=== PATIENT | female | born 1975 | race Caucasian/White ===

== ENCOUNTER 2017-06-01 17:32 | Emergency (ER) | payer OTHER ==
[~2017-06-01] VITALS: Wt 63.5 kg
[~2017-06-01 17:32] MED LIST: CIPROFLOXACIN500 MG PO; COPAXONE40 MG/ML SC; CYMBALTA20 MG PO; Copaxone 20M20 MG/ML IM; DARVOCET N 1001 TAB PO; DILANTIN; DILANTIN100 MG; ELAVIL10 MG PO; KEPPRA100 MG/M1 PO; LIBRIUM10 MG PO; MOTRIN800 MG PO; MULTI VITAMINS1 TAB PO; NEURONTIN300 MG PO; NKHM; OMEPRAZOLE20 MG PO; PERCOCET 325 MG1 TA4 PO; PERCOCET 325 MG1 TA5 PO; PROVIGIL200 MG PO; REGLAN10 MG PO; SYNTHROID0.05 MG PO; TRAMADOL HCL50 MG; TRAMADOL HCL50 MG PO; VALIUM10 MG; VISTARIL PO; XANAX1 MG; ZANAFLEX4 MG PO; ZOLOFT100 MG PO
[2017-06-01 17:45] VITALS: BP 138/77
[2017-06-01] MEDS ORDERED: Motrin,Rufen800 MG PO ×2 (19:36→19:44)
== END 2017-06-01 20:16 | disposition home or self-care (01) ==
LOC: ED 17:32
DX: S81.811A Laceration without foreign body, right lower leg, initial encounter (principal); F17.200 Nicotine dependence, unspecified, uncomplicated; Z79.899 Other long term (current) drug therapy; W25.XXXA Contact with sharp glass, initial encounter; Y93.89 Activity, other specified; Y92.89 Other specified places as the place of occurrence of the external cause; Y99.8 Other external cause status

== ENCOUNTER 2017-09-04 14:43 | Emergency (ER) | payer OTHER ==
[~2017-09-04] VITALS: Ht 162.5 cm; Wt 63.5 kg
[~2017-09-04 14:43] MED LIST changes: +Motrin,Rufen800 MG PO
[2017-09-04 14:45] VITALS: BP 121/72
[2017-09-04] MEDS ORDERED: NAPROSYN500 MG PO (15:19)
[2017-09-04] MEDS ORDERED: DIFLUCAN150 MG PO (15:24)
== END 2017-09-04 15:21 | disposition home or self-care (01) ==
LOC: ED 14:43
DX: M79.631 Pain in right forearm (principal); F17.200 Nicotine dependence, unspecified, uncomplicated; Z79.899 Other long term (current) drug therapy

== ENCOUNTER → 2017-11-11 | Outpatient (CLI) | payer OTHER ==
[~2017-11-11] MED LIST changes: +DIFLUCAN150 MG PO; +NAPROSYN500 MG PO
[2017-11-11 13:13] LABS: BUN 10 mg/dl (7-24); CREATININE 0.91 mg/dL (0.55-1.02)
== END | disposition home or self-care (01) ==
LOC: LAB 12:38 → MRI 13:00
PROVIDERS: Physician Assistant Medical
DX: M53.82 Other specified dorsopathies, cervical region (principal)

== ENCOUNTER 2017-12-09 14:01 | Inpatient (IN) | payer OTHER ==
[~2017-12-09] VITALS: Ht 162.6 cm; Wt 64.4 kg
[~2017-12-09 14:01] MED LIST changes: -KEPPRA100 MG/M1 PO; +KEPPRA750 MG PO
[2017-12-09 15:30] VITALS: BP 119/81
[2017-12-09 15:50] LABS: BASO # 0.1 10*3/uL (0.0-0.1); BASO % 0.6 % (0.0-1.0); EOS # 0.1 10*3/uL (0.0-0.4); HEMATOCRIT 39.3 % (37.0-47.0); HEMOGLOBIN 12.6 g/dl (12.0-16.0); LYMPH # 2.1 10*3/uL (1.3-4.4); LYMPH % 19.4 % (27.0-41.0); MEAN CELL VOLUME 86.9 fl (81.0-99.0); MEAN CORPUSCULAR HGB 27.9 pg (27.0-31.0); MEAN CORPUSCULAR HGB CONC 32.1 g/dl (33.0-37.0); MEAN PLATELET VOLUME 9.8 fl (9.6-12.3); MONO # 0.4 10*3/uL (0.1-1.0); MONO % 3.9 % (3.0-9.0); NEUT % 74.7 % (47.0-73.0); PLATELET COUNT AUTOMATED 309 10*3/uL (130-400); RED BLOOD COUNT 4.52 10*6/uL (4.10-5.10); RED CELL DISTRI WIDTH 14.2 % (0-14.5); WHITE BLOOD COUNT 10.6 10*3/uL (4.8-10.8)
[2017-12-09 16:09] LABS: ALBUMIN 3.8 gm/dl (3.1-4.5); BUN 10 mg/dl (7-24); CHLORIDE 103 mmol/L (98-107); CREATININE 0.71 mg/dL (0.55-1.02); POTASSIUM 3.8 mmol/L (3.5-5.1); SGOT/AST 16 IU/L (3-35); SGPT/ALT 25 U/L (12-78); SODIUM 138 mmol/L (136-145)
[2017-12-09 16:13] LABS: ALKALINE PHOSPHATASE 79 U/L (45-117)
[2017-12-09 16:14] LABS: ETHYL ALCOHOL < 3.0 mg/dl (<3)
[2017-12-09] MEDS ORDERED: ABILIFY15 MG PO (17:00)
[2017-12-09] MEDS ORDERED: ZOLOFT100 MG PO (17:01)
[2017-12-09] MEDS ORDERED: NEURONTIN600 MG PO (17:01)
[2017-12-09] MEDS ORDERED: MIRAPEX1 MG PO (17:02)
[2017-12-09 17:31] LABS: BILIRUBIN NEGATIVE (NEGATIVE); BLOOD NEGATIVE (NEGATIVE); CLARITY SL CLOUDY (CLEAR); COLOR YELLOW (YELLOW); GLUCOSE NEGATIVE (NEGATIVE); KETONE NEGATIVE (NEGATIVE); LEUKO ESTERASE NEGATIVE (NEGATIVE); NITRITE NEGATIVE (NEGATIVE); PH 6.5 (5.0-9.0); SPECIFIC GRAVITY 1.015 (1.005-1.030); UROBILINOGEN 0.2 E.U./dl (0.2-1.0)
[2017-12-09 17:41] LABS: BACTERIA TRACE; EPITHELIAL CELLS 15-20; URINE AMPHETAMINES < 1000 (1000ng/ml); URINE BARBITURATES < 200 (200ng/ml); URINE BENZODIAZEPINES > 200 (200ng/ml); URINE CANNABINOIDS (THC) > 50 (50ng/ml); URINE COCAINE > 300 (300ng/ml); URINE METHADONE < 300 (300ng/ml); URINE OPIATES < 300 (300ng/ml)
[2017-12-09 17:43] LABS: URINE PHENCYCLIDINE < 25 (25ng/ml)
[2017-12-09 20:01] VITALS: BP 118/82
[2017-12-10 00:11] VITALS: BP 106/67
[2017-12-10 08:00] VITALS: BP 112/60
[2017-12-10 12:00] VITALS: BP 104/68
[2017-12-10 16:00] VITALS: BP 107/58
[2017-12-10 20:00] VITALS: BP 115/58
[2017-12-11] VITALS: BP 114/70
[2017-12-11 08:00] VITALS: BP 125/80
[2017-12-11 12:00] VITALS: BP 102/53
[2017-12-11 16:43] VITALS: BP 107/61
[2017-12-11 20:00] VITALS: BP 115/56
[2017-12-12] VITALS: BP 120/62
[2017-12-12 06:50] LABS: BASO # 0.1 10*3/uL (0.0-0.1); BASO % 1.1 % (0.0-1.0); CREATININE 0.95 mg/dL (0.55-1.02); EOS # 0.2 10*3/uL (0.0-0.4); HEMATOCRIT 39.1 % (37.0-47.0); HEMOGLOBIN 11.9 g/dl (12.0-16.0); LYMPH # 3.4 10*3/uL (1.3-4.4); LYMPH % 41.7 % (27.0-41.0); MEAN CELL VOLUME 90.7 fl (81.0-99.0); MEAN CORPUSCULAR HGB 27.6 pg (27.0-31.0); MEAN CORPUSCULAR HGB CONC 30.4 g/dl (33.0-37.0); MEAN PLATELET VOLUME 9.9 fl (9.6-12.3); MONO # 0.5 10*3/uL (0.1-1.0); MONO % 6.2 % (3.0-9.0); NEUT # 3.8 10*3/uL (2.3-7.9); NEUT % 47.6 % (47.0-73.0); PLATELET COUNT AUTOMATED 316 10*3/uL (130-400); RED BLOOD COUNT 4.31 10*6/uL (4.10-5.10); RED CELL DISTRI WIDTH 14.5 % (0-14.5)
[2017-12-12 08:00] VITALS: BP 113/42
[2017-12-12] MEDS ORDERED: METHOCARBAMOL750 M1 PO (11:06)
[2017-12-12] MEDS ORDERED: NATURE'S BLEND F1 MG PO (11:06)
[2017-12-12] MEDS ORDERED: DICYCLOMINE HCL20 MG PO (11:06)
[2017-12-12] MEDS ORDERED: ZOFRAN 4 MG ED2 TAB PO (11:06)
[2017-12-12] MEDS ORDERED: NATURE'S BLEND100 M2 PO (11:06)
[2017-12-12] MEDS ORDERED: ATARAX,VISTARIL50 MG PO (11:06)
[2017-12-12] MEDS ORDERED: TYLENOL EXTRA500 M2 PO (11:06)
[2017-12-12] MEDS ORDERED: NICODERM T (11:06)
== END 2017-12-12 11:19 | disposition home or self-care (01) | DRG 897 ==
LOC: 5E 14:01
PROVIDERS: Emergency Medicine; Internal Medicine
DX: F11.23 Opioid dependence with withdrawal (principal); E83.51 Hypocalcemia; G35 Multiple sclerosis; B37.3 Candidiasis of vulva and vagina; F14.90 Cocaine use, unspecified, uncomplicated; F17.210 Nicotine dependence, cigarettes, uncomplicated; F32.9 Major depressive disorder, single episode, unspecified; F41.9 Anxiety disorder, unspecified; Z71.6 Tobacco abuse counseling; Z86.69 Personal history of other diseases of the nervous system and sense organs; Z86.39 Personal history of other endocrine, nutritional and metabolic disease; Z98.51 Tubal ligation status; Z82.0 Family history of epilepsy and other diseases of the nervous system; Z82.49 Family history of ischemic heart disease and other diseases of the circulatory system; Z79.899 Other long term (current) drug therapy

== ENCOUNTER 2018-05-02 00:37 | Emergency (ER) | payer OTHER ==
[~2018-05-02] VITALS: Ht 162.5 cm; Wt 63.5 kg
[~2018-05-02 00:37] MED LIST changes: +ABILIFY15 MG PO; +ATARAX,VISTARIL50 MG PO; +DICYCLOMINE HCL20 MG PO; +METHOCARBAMOL750 M1 PO; +MIRAPEX1 MG PO; +NATURE'S BLEND F1 MG PO; +NATURE'S BLEND100 M2 PO; +NEURONTIN600 MG PO; +NICODERM T; +TYLENOL EXTRA500 M2 PO; +ZOFRAN 4 MG ED2 TAB PO
[2018-05-02 00:40] VITALS: BP 110/74
[2018-05-02 00:55] LABS: BILIRUBIN 1+ (NEGATIVE); BLOOD NEGATIVE (NEGATIVE); CLARITY SL CLOUDY (CLEAR); COLOR YELLOW (YELLOW); GLUCOSE NEGATIVE (NEGATIVE); KETONE TRACE (NEGATIVE); LEUKO ESTERASE 2+ (NEGATIVE); NITRITE POSITIVE (NEGATIVE); SPECIFIC GRAVITY >= 1.030 (1.005-1.030)
[2018-05-02 01:03] LABS: EPITHELIAL CELLS 45-50
[2018-05-02 01:06] LABS: BACTERIA 3+; WBC 31-40 wbc/hpf (0-5)
[2018-05-02] MEDS ORDERED: PYRIDIUM200 M1 PO (01:19)
[2018-05-02] MEDS ORDERED: SEPTDS PO (01:19)
[2018-06-15] MEDS ORDERED: KEPPRA500 MG PO (15:22)
[2018-06-15] MEDS ORDERED: CYMBALTA60 MG PO (15:22)
== END 2018-05-02 03:01 | disposition home or self-care (01) ==
LOC: ED 00:37
PROVIDERS: Emergency Medicine
DX: N39.0 Urinary tract infection, site not specified (principal); F17.210 Nicotine dependence, cigarettes, uncomplicated; Z79.899 Other long term (current) drug therapy

== ENCOUNTER → 2018-07-01 | Outpatient (CLI) | payer OTHER ==
[~2018-07-01] MED LIST changes: +CYMBALTA60 MG PO; +KEPPRA1000 MG PO; +NEURONTIN400 MG PO; -NEURONTIN600 MG PO; +PYRIDIUM200 M1 PO; +SEPTDS PO; +SUBOXONE 8 MG-1 EACH SL
== END | disposition home or self-care (01) ==
LOC: MAMMO 06-24 08:20
DX: Z12.31 Encounter for screening mammogram for malignant neoplasm of breast (principal)

== ENCOUNTER 2018-09-13 11:56 | Inpatient (IN) | payer MEDICAID ==
[~2018-09-13] VITALS: Ht 162.6 cm; Wt 66.3 kg
[~2018-09-13 11:56] MED LIST changes: -KEPPRA1000 MG PO; +KEPPRA500 MG PO; -NEURONTIN400 MG PO; +NEURONTIN600 MG PO; -SUBOXONE 8 MG-1 EACH SL
[2018-09-13 14:15] LABS: BASO # 0.1 10*3/uL (0.0-0.1); BASO % 0.8 % (0.0-1.0); EOS # 0.1 10*3/uL (0.0-0.4); HEMATOCRIT 40.5 % (37.0-47.0); HEMOGLOBIN 12.8 g/dl (12.0-16.0); LYMPH # 2.1 10*3/uL (1.3-4.4); LYMPH % 29.2 % (27.0-41.0); MEAN CELL VOLUME 88.2 fl (81.0-99.0); MEAN CORPUSCULAR HGB 27.9 pg (27.0-31.0); MEAN CORPUSCULAR HGB CONC 31.6 g/dl (33.0-37.0); MEAN PLATELET VOLUME 10.2 fl (9.6-12.3); MONO # 0.4 10*3/uL (0.1-1.0); MONO % 5.5 % (3.0-9.0); NEUT # 4.6 10*3/uL (2.3-7.9); NEUT % 63.4 % (47.0-73.0); PLATELET COUNT AUTOMATED 222 10*3/uL (130-400); RED BLOOD COUNT 4.59 10*6/uL (4.10-5.10); RED CELL DISTRI WIDTH 14.9 % (0-14.5); WHITE BLOOD COUNT 7.2 10*3/uL (4.8-10.8)
[2018-09-13 14:30] LABS: ALBUMIN 3.6 gm/dl (3.1-4.5); ALKALINE PHOSPHATASE 67 U/L (45-117); BUN 9 mg/dl (7-24); CHLORIDE 106 mmol/L (98-107); CREATININE 0.73 mg/dL (0.55-1.02); POTASSIUM 4.3 mmol/L (3.5-5.1); SGOT/AST 16 IU/L (3-35); SGPT/ALT 18 U/L (12-78); SODIUM 137 mmol/L (136-145); TOTAL PROTEIN 7.2 gm/dL (6.4-8.2)
[2018-09-13 14:31] LABS: ETHYL ALCOHOL < 3.0 mg/dl (<3)
[2018-09-13 14:32] LABS: BETA-HCG, QUANT < 1.0 mIU/mL (1-3)
[2018-09-13 15:03] LABS: BILIRUBIN NEGATIVE (NEGATIVE); BLOOD NEGATIVE (NEGATIVE); CLARITY SL CLOUDY (CLEAR); COLOR YELLOW (YELLOW); GLUCOSE NEGATIVE (NEGATIVE); KETONE NEGATIVE (NEGATIVE); LEUKO ESTERASE 1+ (NEGATIVE); NITRITE NEGATIVE (NEGATIVE); UROBILINOGEN 0.2 E.U./dl (0.2-1.0)
[2018-09-13 15:09] LABS: EPITHELIAL CELLS TNTC
[2018-09-13 15:10] LABS: BACTERIA TRACE
[2018-09-13 15:11] LABS: URINE AMPHETAMINES < 1000 (1000ng/ml); URINE BARBITURATES < 200 (200ng/ml); URINE BENZODIAZEPINES < 200 (200ng/ml); URINE CANNABINOIDS (THC) < 50 (50ng/ml); URINE COCAINE > 300 (300ng/ml); URINE METHADONE < 300 (300ng/ml); URINE OPIATES > 300 (300ng/ml)
[2018-09-13 15:13] LABS: URINE PHENCYCLIDINE < 25 (25ng/ml)
[2018-09-13 16:00] VITALS: BP 122/67
[2018-09-13 20:00] VITALS: BP 124/66
[2018-09-14] VITALS: BP 123/91
[2018-09-14 08:00] VITALS: BP 104/82; BP 156/88
[2018-09-14 12:00] VITALS: BP 100/72
[2018-09-14 16:00] VITALS: BP 102/47
[2018-09-14 20:00] VITALS: BP 115/54
[2018-09-15 06:35] LABS: BASO # 0.1 10*3/uL (0.0-0.1); BASO % 0.8 % (0.0-1.0); EOS # 0.2 10*3/uL (0.0-0.4); EOS % 2.1 % (1.0-4.0); HEMATOCRIT 39.6 % (37.0-47.0); HEMOGLOBIN 12.2 g/dl (12.0-16.0); LYMPH # 3.5 10*3/uL (1.3-4.4); LYMPH % 41.8 % (27.0-41.0); MEAN CELL VOLUME 89.4 fl (81.0-99.0); MEAN CORPUSCULAR HGB 27.5 pg (27.0-31.0); MEAN CORPUSCULAR HGB CONC 30.8 g/dl (33.0-37.0); MEAN PLATELET VOLUME 10.8 fl (9.6-12.3); MONO # 0.5 10*3/uL (0.1-1.0); MONO % 6.4 % (3.0-9.0); NEUT % 48.5 % (47.0-73.0); PLATELET COUNT AUTOMATED 213 10*3/uL (130-400); RED BLOOD COUNT 4.43 10*6/uL (4.10-5.10); WHITE BLOOD COUNT 8.3 10*3/uL (4.8-10.8)
[2018-09-15 06:45] LABS: BUN 15 mg/dl (7-24); CHLORIDE 108 mmol/L (98-107); CREATININE 0.88 mg/dL (0.55-1.02); POTASSIUM 4.8 mmol/L (3.5-5.1); SODIUM 141 mmol/L (136-145)
[2018-09-15 08:00] VITALS: BP 109/58
[2018-09-15 16:00] VITALS: BP 128/65
[2018-09-16] VITALS: BP 121/73
[2018-09-16 08:00] VITALS: BP 120/74
[2018-09-16] MEDS ORDERED: ZOFRAN 4 MG ED2 TAB PO (11:04)
[2018-09-16] MEDS ORDERED: ATARAX,VISTARIL50 MG PO (11:04)
== END 2018-09-16 12:21 | disposition home or self-care (01) | DRG 897 ==
LOC: 5E 11:56
PROVIDERS: Podiatrist Primary Podiatric Medicine
DX: F11.23 Opioid dependence with withdrawal (principal); G25.81 Restless legs syndrome; F41.9 Anxiety disorder, unspecified; F17.210 Nicotine dependence, cigarettes, uncomplicated; B19.20 Unspecified viral hepatitis C without hepatic coma; F32.9 Major depressive disorder, single episode, unspecified; G35 Multiple sclerosis; Z71.6 Tobacco abuse counseling; Z98.51 Tubal ligation status; Z82.49 Family history of ischemic heart disease and other diseases of the circulatory system; Z82.0 Family history of epilepsy and other diseases of the nervous system; Z79.899 Other long term (current) drug therapy

== ENCOUNTER 2018-10-01 11:52 | Inpatient (IN) | payer OTHER ==
[~2018-10-01] VITALS: Ht 162.5 cm; Wt 66.4 kg
--- NOTE | ~2018-10-01 | DS ---
[place], [place] DISCHARGE SUMMARY NAME: PRAKASH ARROYO UNIT #: [id number] ROOM: 411 DOCTOR: JANEL ZAPATA MD BIRTHDATE: [birth year] DOS: 10/02/2018 DISCHARGE DIAGNOSES: 1. The patient left against medical advice. 2. Generalized seizure from not taking Keppra. 3. History of heroin drug abuse and recent detox. 4. Nicotine smoke dependence. 5. Restless leg syndrome. 6. Generalized anxiety disorder. 7. Major depression, recurrent. 8. Multiple sclerosis. 9. Chronic pain syndrome. HOSPITAL COURSE: The patient was brought to the Emergency Department with apparent seizure where she says she did not lose consciousness, but she had another seizure in the Emergency Department, which was tonic-clonic and she lost consciousness for a few minutes. The patient apparently has history of generalized seizure disorder and she stopped taking her Keppra, which was apparently the reason for her new seizures. The patient says she has not had any seizures since 2011 until now. The patient was given a loading dose of IV Keppra infusion. The patient has had no seizures after admission and plan was to keep her at least until tomorrow, but she left the hospital against medical advice. The patient with opiate and heroin abuse, was recently under detox at [facility]. Negative test. History of multiple sclerosis and chronic pains. Major depression, recurrent, history. Nicotine smoke dependence. The patient encouraged to stop smoking cigarettes. [place], [place] DISCHARGE SUMMARY NAME: PRAKASH ARROYO UNIT #: [id number] ROOM: 411 DOCTOR: JANEL ZAPATA MD BIRTHDATE: [birth year] JANEL ZAPATA MD CM:DISCHARG [id number] JANEL ZAPATA MD 10/02/182206 interface
--- NOTE | ~2018-10-01 | WRIGHTHP ---
[place], [place] PATIENT HISTORY AND PHYSICAL EXAM NAME: PRAKASH ARROYO [facility] #: [id number] UNIT #: [id number] ROOM: 411 DOCTOR: JANEL ZAPATA MD BIRTHDATE: [birth year] DOS: 10/01/2018 HISTORY OF PRESENT ILLNESS: The patient is a 43-year-old female with a past medical history of: 1. Opiate abuse. 2. Nicotine smoke dependence. 3. Restless leg syndrome. 4. Heroin abuse. 5. Generalized anxiety disorder. 6. Major depression, recurrent. 7. Multiple sclerosis. 8. Chronic pain syndrome. The patient presented to the Emergency Department with seizure activity. The patient apparently had not taken her Keppra and she says she has not had any seizure since 2011. In the Emergency Department, the patient had another episode of generalized seizures where she apparently lost her consciousness. The patient was observed to have tonic-clonic seizure activity in the Emergency Department apparently for a few minutes only. The patient was infused with loading dose of Keppra intravenously and then admitted to a monitored bed. The patient is walking around and has not had any seizure since then. No chest pain, no shortness of breath, no other GI or urinary symptoms. REVIEW OF SYSTEMS: RESPIRATORY: No increasing shortness of breath or wheezing. GASTROINTESTINAL: No nausea, vomiting, diarrhea or constipation. CARDIOVASCULAR: No chest pains or palpitations. FAMILY HISTORY: Noncontributory. MEDICATIONS: The patient was supposed to be taking Keppra and Suboxone at home. ALLERGIES: No known drug allergies. PHYSICAL EXAMINATION: GENERAL APPEARANCE: The patient is alert and oriented x 3, in no visible distress. HEENT AND NECK: Extraocular movements are intact. Sclerae are anicteric. Oral mucosa is moist and clean. No obvious facial weakness. Neck is supple without any lymphadenopathy. No thyromegaly. No JVD. No carotid arterial bruits. LUNGS: Clear to auscultation. No wheezing. No rhonchi. CARDIOVASCULAR SYSTEM: Heart rate is regular in rate and rhythm. S1 and S2 normally audible. No significant murmur or any other abnormal cardiac sounds. ABDOMEN: Soft, nontender. No obvious organomegaly. Bowel sounds are present. No obvious herniation. EXTREMITIES: Without significant cyanosis or edema. Warm to touch. CENTRAL NERVOUS SYSTEM: Alert and oriented x 3. Cranial nerves II-XII are intact. Speech is normal. The patient is able to move all extremities. Normal muscle strength. Deep tendon reflexes are equal on both sides. Plantars were downgoing. [place], [place] PATIENT HISTORY AND PHYSICAL EXAM [facility]: [facility] [id number] UNIT #: [id number] ROOM: [facility] DOCTOR: JANEL ZAPATA MD BIRTHDATE: [birth year] LABORATORY DATA: Urinalysis without significant signs of infection. Urine drug screen was negative. test was negative. Normal serum electrolytes. White cell count of 10,900. IMPRESSION: 1. The patient has history of generalized seizure disorder, had a breakthrough seizure after she stopped taking her Keppra. The patient had a second seizure in the Emergency Department, which was only for a couple of minutes and was tonic-clonic in nature and the patient lost consciousness. The patient was loaded with IV loading dose of Keppra and since then she is asymptomatic and walking around in the hallways. The patient is on seizure precautions and being monitored on a cardiac floor. 2. History of heroin drug abuse, was on detox recently. The patient says she is off of illegal drugs for last 2 weeks. 3. test negative. Urine drug screen test was negative. JANEL ZAPATA MD CM:HISPHYS:PATIENT HISTORY AND PHYSICAL EXAMINATION 16 35 JANEL ZAPATA MD 10/01/182026 interface
[~2018-10-01 11:52] MED LIST changes: -KEPPRA500 MG PO; +NEURONTIN400 MG PO; -NEURONTIN600 MG PO
[2018-10-01 11:59] VITALS: BP 121/72
[2018-10-01] MEDS ORDERED: SUBOXONE 8 MG-1 EACH SL (12:01)
[2018-10-01 12:16] LABS: BASO # 0.1 10*3/uL (0.0-0.1); BASO % 0.6 % (0.0-1.0); EOS # 0.1 10*3/uL (0.0-0.4); EOS % 0.6 % (1.0-4.0); HEMATOCRIT 40.9 % (37.0-47.0); HEMOGLOBIN 13.4 g/dl (12.0-16.0); LYMPH # 3.2 10*3/uL (1.3-4.4); LYMPH % 29.1 % (27.0-41.0); MEAN CELL VOLUME 84.7 fl (81.0-99.0); MEAN CORPUSCULAR HGB 27.7 pg (27.0-31.0); MEAN CORPUSCULAR HGB CONC 32.8 g/dl (33.0-37.0); MONO # 0.5 10*3/uL (0.1-1.0); MONO % 4.6 % (3.0-9.0); NEUT % 64.7 % (47.0-73.0); PLATELET COUNT AUTOMATED 323 10*3/uL (130-400); RED BLOOD COUNT 4.83 10*6/uL (4.10-5.10); RED CELL DISTRI WIDTH 14.8 % (0-14.5); WHITE BLOOD COUNT 10.9 10*3/uL (4.8-10.8)
[2018-10-01 12:31] LABS: ALBUMIN 3.8 gm/dl (3.1-4.5); ALKALINE PHOSPHATASE 89 U/L (45-117); BUN 8 mg/dl (7-24); CHLORIDE 102 mmol/L (98-107); CREATININE 0.85 mg/dL (0.55-1.02); POTASSIUM 3.8 mmol/L (3.5-5.1); SGOT/AST 14 IU/L (3-35); SGPT/ALT 17 U/L (12-78); SODIUM 138 mmol/L (136-145); TOTAL PROTEIN 7.9 gm/dL (6.4-8.2)
[2018-10-01 12:35] LABS: ACETAMINOPHEN (TYLENOL) < 5.0 ug/ml (10-30); ETHYL ALCOHOL < 3.0 mg/dl (<3)
[2018-10-01 13:18] VITALS: BP 146/89
[2018-10-01 13:54] VITALS: BP 115/68
[2018-10-01 15:10] LABS: BILIRUBIN NEGATIVE (NEGATIVE); BLOOD NEGATIVE (NEGATIVE); CLARITY SL CLOUDY (CLEAR); COLOR YELLOW (YELLOW); GLUCOSE NEGATIVE (NEGATIVE); KETONE NEGATIVE (NEGATIVE); LEUKO ESTERASE NEGATIVE (NEGATIVE); NITRITE NEGATIVE (NEGATIVE); SPECIFIC GRAVITY 1.015 (1.005-1.030); UROBILINOGEN 0.2 E.U./dl (0.2-1.0)
[2018-10-01] MEDS ORDERED: KEPPRA1000 MG PO (15:13)
[2018-10-01 15:18] LABS: URINE AMPHETAMINES < 1000 (1000ng/ml); URINE BARBITURATES < 200 (200ng/ml); URINE BENZODIAZEPINES < 200 (200ng/ml); URINE CANNABINOIDS (THC) < 50 (50ng/ml); URINE COCAINE < 300 (300ng/ml); URINE METHADONE < 300 (300ng/ml); URINE OPIATES < 300 (300ng/ml)
[2018-10-01 15:22] LABS: URINE PHENCYCLIDINE < 25 (25ng/ml)
[2018-10-01 15:26] LABS: BACTERIA 1+; EPITHELIAL CELLS 16-20; WBC 0-2 wbc/hpf (0-5)
[2018-10-01 16:00] VITALS: BP 115/68
[2018-10-01 20:00] VITALS: BP 96/83
[2018-10-02] VITALS: BP 106/86
[2018-10-02 07:48] VITALS: BP 90/60
[2018-10-02 12:00] VITALS: BP 115/63
[2018-10-02 16:00] VITALS: BP 110/65
== END 2018-10-02 18:29 | disposition left against medical advice (07) | DRG 101 ==
LOC: ED 11:52 → EDHOLD 13:36 → 4E 14:08
PROVIDERS: Nurse Practitioner Family
DX: G40.409 Other generalized epilepsy and epileptic syndromes, not intractable, without status epilepticus (principal); F33.9 Major depressive disorder, recurrent, unspecified; Z53.21 Procedure and treatment not carried out due to patient leaving prior to being seen by health care provider; G25.81 Restless legs syndrome; F41.1 Generalized anxiety disorder; G35 Multiple sclerosis; G89.4 Chronic pain syndrome; F17.210 Nicotine dependence, cigarettes, uncomplicated; F11.10 Opioid abuse, uncomplicated; Z82.49 Family history of ischemic heart disease and other diseases of the circulatory system

== ENCOUNTER 2018-10-20 11:44 | Inpatient (IN) | payer OTHER ==
[~2018-10-20] VITALS: Ht 162.5 cm; Wt 69.6 kg
[2018-10-20] VITALS (7 sets, daily range): BP systolic 96–119; BP diastolic 52–81
--- NOTE | ~2018-10-20 | WRIGHTHP ---
[place], [place] PATIENT HISTORY AND PHYSICAL EXAM NAME: PRAKASH ARROYO [facility] #: [id number] UNIT #: [id number] ROOM: 406 DOCTOR: JANEL ZAPATA MD BIRTHDATE: [birth year] DOS: 10/20/2018 HISTORY OF PRESENT ILLNESS: The patient is a 43-year-old female with a past medical history of: 1. Generalized seizure disorder. 2. History of heroin drug abuse and detox. 3. Nicotine smoke dependence. 4. Restless leg syndrome. 5. Generalized anxiety disorder. 6. Major depression, recurrent. 7. Multiple sclerosis. 8. Chronic pain syndrome. The patient presented to the Emergency Department with 12 hour complains of intractable nausea, vomiting and diarrhea, feeling very weak. She had hot flashes and felt very sick. The patient was admitted for suspected viral gastroenteritis with dehydration and intractable nausea and vomiting. After admission and treatment with antinausea, the patient's nausea, vomiting and diarrhea have resolved and she has been hydrated with normal saline and starting to feel much better. No dizziness or fainting episode. No GI or urinary symptoms. REVIEW OF SYSTEMS: RESPIRATORY: No increasing shortness of breath. GASTROINTESTINAL: No nausea, vomiting and diarrhea. CARDIOVASCULAR SYSTEM: No chest pains or palpitations. FAMILY HISTORY: Noncontributory. SOCIAL HISTORY: Denies smoking cigarettes, alcohol and drug abuse, recently detoxed for substance abuse. HOME MEDICATIONS: Omeprazole, Keppra, gabapentin and Suboxone. PHYSICAL EXAMINATION: GENERAL: Alert, oriented x 3, in no visible distress. HEENT AND NECK: Extraocular movements are intact. Sclerae are anicteric. Oral mucosa is moist and clean. No obvious facial weakness. Neck is supple without any lymphadenopathy. No thyromegaly. No JVD. No carotid arterial bruits. LUNGS: Clear to auscultation. No wheezing. No rhonchi. CARDIOVASCULAR SYSTEM: Heart rate is regular in rate and rhythm. S1 and S2 normally audible. No significant murmur or any other abnormal cardiac sounds. ABDOMEN: Soft, nontender. No obvious organomegaly. Bowel sounds are present. No obvious herniation. EXTREMITIES: Without significant cyanosis or edema. Warm to touch. CENTRAL NERVOUS SYSTEM: Alert and oriented x 3. Cranial nerves II-XII are intact. Speech is normal. The patient is able to move all extremities. Normal muscle strength. Deep tendon reflexes are equal on both sides. Plantars were downgoing. [place], [place] PATIENT HISTORY AND PHYSICAL EXAM NAME: PRAKASH ARROYO [facility] #: [id number] UNIT #: [id number] ROOM: [facility] DOCTOR: JANEL ZAPATA MD BIRTHDATE: [birth year] LABORATORY DATA: Sed rate of 5. X-ray of the abdomen showed no acute process. PT, PTT normal. CBC, normal, slight left shift. Normal serum electrolytes. Influenzae A and B were negative. IMPRESSION: 1. The patient with acute viral gastroenteritis with nausea, vomiting and diarrhea and dehydration, improving with hydration, normal saline and symptoms have improved with treatment with Zofran. 2. History of substance abuse. The patient remains on Suboxone, which has been continued. 3. Generalized seizure disorder, treated and asymptomatic with Keppra. 4. Gastroesophageal reflux disease and esophagitis, treated with omeprazole, asymptomatic. JANEL ZAPATA MD CM:HISPHYS:PATIENT HISTORY AND PHYSICAL EXAMINATION [id number] 36 JANEL ZAPATA MD 10/21/18 183 interface
--- NOTE | ~2018-10-20 | DS ---
[place], [place] DISCHARGE SUMMARY NAME: PRAKASH ARROYO UNIT #: [id number] ROOM: 406 DOCTOR: JANEL ZAPATA MD BIRTHDATE: [birth year] DOS: 10/22/2018 DISCHARGE DIAGNOSES: 1. Viral gastroenteritis with nausea, vomiting, diarrhea and dehydration. 2. Substance abuse with urinary drug screen turning positive for marijuana and cocaine this time and previous history of opioid abuse. 3. History of generalized seizure disorder. 4. History of heroin abuse and detoxification. 5. Nicotine smoke dependence. 6. Restless leg syndrome. 7. Generalized anxiety disorder. 8. Major depression, recurrent. 9. Multiple sclerosis. 10. Chronic pain syndrome. HOSPITAL COURSE: The patient was admitted after 12 hours, complains of repeat nausea, vomiting and diarrhea. The patient was feeling very weak and was having hot flashes and felt very sick. The patient was admitted, started on hydration with normal saline and given Zofran for symptom relief. The patient's nausea and vomiting and diarrhea has completely resolved and she appears rehydrated now and feeling stronger. 1. History of drug abuse with heroin, better with opioids and now she has marijuana and cocaine in her urine during this admission along with benzodiazepines. The patient has been consulted against drug abuse and bad effects of these substances on her health have been explained to her in good detail. The patient already has been through detox for heroin abuse recently and she understands. 2. Generalized seizure disorder. The patient had recent seizures when she had taken herself off Keppra and she was restarted on Keppra during the last admission. Since then, she has had no more episodes. Keppra was continued. 3. History of GERD and esophagitis. The patient was treated with omeprazole and she is asymptomatic now. LABORATORY DATA: INR within normal range. Urine drug screen results as mentioned above. KUB x-ray of the abdomen without any acute abnormality. CBC was normal. DISCHARGE MANAGEMENT: Keppra 750 mg b.i.d., gabapentin 400 mg 3 times a day, Suboxone 8 mg b.i.d. Follow up with me on Thursday. [place], [place] DISCHARGE SUMMARY NAME: PRAKASH ARROYO UNIT #: [id number] ROOM: 406 DOCTOR: JANEL ZAPATA MDTE: [birth year] JANEL ZAPATA MD CM:PREETI [id number] JANEL ZAPATA MD 10/22/18 1501 interface
--- NOTE | ~2018-10-20 | EKG ---
[place], [place] ELECTROCARDIOGRAM REPORT NAME: PRAKASH ARROYO UNIT #: [id number] ROOM: 406 DOCTOR: MARGARITA DRAFT REPORT BIRTHDATE: [birth year] [facility] Test Date: 2018-10-20 Test Time: 13:05:08 Pat Name: PRAKASH ARROYO Department: Room: 406 Gender: F Underwriter Solicitation Director: Nicolette Samson : 1975 Requested By: ELIOT BURK Order Number: [id number] Reading MD: Jason Daily MD Measurements Intervals [place] Rate: 83 P: 67 NE: 120 QRS: 73 QRSD: 97 T: 52 QT: 380 QTc: 447 Interpretive Statements Sinus rhythm Poor precordial R-wave progression Compared to ECG 06/16/2018 20:24:40 No significant change Electronically Signed On 10-21-2018 18:10:48 PST by Jason Daily MD CM:EKGRPT:ELECTROCARDIOGRAM REPORT 1305 1810 ELIOT MILLIGAN DRAFT REPORT ELIOT BURK DO
[~2018-10-20 11:44] MED LIST changes: +KEPPRA1000 MG PO; +SUBOXONE 8 MG-1 EACH SL
--- NOTE | 2018-10-20 12:32 | NUR ---
UNABLE TO PROVIDE URINE SPECIMIN AT THIS TIME.
--- NOTE | 2018-10-20 12:38 | NUR ---
ZOFRAN EFFECTIVE FOR NAUSEA, RESTING QUIETLY IN BED, TELLS ME TORADOL HELPED.
--- NOTE | 2018-10-20 13:13 | NUR ---
PT AMBULATED TO BATHROOM, TOLERATED WELL. PT DROPPED URINE CUP INTO TOILET. WILL ATTEMPT AT A LATER TIME,
--- NOTE | 2018-10-20 13:13 | NUR ---
DR MULLEN NOTIFIED UNABLE TO OBTAIN ALL ORDERED BLOOD WORK.
[2018-10-20 13:37] LABS: ALBUMIN 2.9 gm/dl (3.1-4.5); ALKALINE PHOSPHATASE 65 U/L (45-117); BUN 9 mg/dl (7-24); CHLORIDE 117 mmol/L (98-107); CREATININE 0.51 mg/dL (0.55-1.02); POTASSIUM 4.1 mmol/L (3.5-5.1); SGOT/AST 23 IU/L (3-35); SGPT/ALT 26 U/L (12-78); SODIUM 141 mmol/L (136-145); TOTAL PROTEIN 6.4 gm/dL (6.4-8.2)
[2018-10-20 13:39] LABS: BETA-HCG, QUANT < 1.0 mIU/mL (1-3); TROPONIN I < 0.015 ng/ml (<0.045)
--- NOTE | 2018-10-20 13:58 | NUR ---
PT UNABLE TO VOID AT THIS TIME.
--- NOTE | 2018-10-20 14:11 | NUR ---
PROVIDED 7UP TO DRINK.
--- NOTE | 2018-10-20 15:08 | NUR ---
PT REFUSED FURTHER ATTEMPTS OF BLOOD WORK, ALSO UNABLE TO VOID WHEN INSTRUCTED TO PROVIDE SPECIMIN. NO VOMITING OR DIARRHEA NOTED SINCE ARRIVAL.
[2018-10-20 15:57] LABS: BASO % 0.4 % (0.0-1.0); EOS % 0.5 % (1.0-4.0); HEMOGLOBIN 12.2 g/dl (12.0-16.0); LYMPH # 0.5 10*3/uL (1.3-4.4); LYMPH % 6.6 % (27.0-41.0); MEAN CELL VOLUME 86.8 fl (81.0-99.0); MEAN CORPUSCULAR HGB 27.9 pg (27.0-31.0); MEAN CORPUSCULAR HGB CONC 32.1 g/dl (33.0-37.0); MEAN PLATELET VOLUME 10.8 fl (9.6-12.3); MONO # 0.2 10*3/uL (0.1-1.0); MONO % 2.2 % (3.0-9.0); NEUT # 6.9 10*3/uL (2.3-7.9); NEUT % 89.9 % (47.0-73.0); PLATELET COUNT AUTOMATED 207 10*3/uL (130-400); RED BLOOD COUNT 4.38 10*6/uL (4.10-5.10); RED CELL DISTRI WIDTH 15.3 % (0-14.5); WHITE BLOOD COUNT 7.7 10*3/uL (4.8-10.8)
--- NOTE | 2018-10-20 16:00 | NUR ---
PT TO XRAY AT THIS TIME.
--- NOTE | 2018-10-20 16:09 | NUR ---
RESTING IN BED QUIETLY, EYES CLOSED. MADE AWARE OF NEED FOR URINE WHEN ABLE TO GO. VERBALIZED UNDERSTANDING.
--- NOTE | 2018-10-20 16:50 | NUR ---
Time: 1649 A 43 year old FEMALE admitted to under services of DR. BENNY CANADA,JANEL Tapia Pt. arrived via bed from ER. Chief complaint: INTRACTABLE VOMITING, VIRAL SUNDROME. YAMILEX RIOS
--- NOTE | 2018-10-20 17:06 | NUR ---
MED REC UP TO DATE PER PATIENT REPORT
--- NOTE | 2018-10-20 17:35 | NUR ---
DR ZAPATA CONTACTED AT THIS TIME REGARDING ADMISSION ORDERSS. ORDERS RECEIVED.
[2018-10-21] VITALS: BP 99/56
[2018-10-21 08:00] VITALS: BP 106/54
--- NOTE | 2018-10-21 09:00 | NUR ---
Advanced Solutions Architect in to talk to patient. Patient states lives at home alone with family/friends checking in on her. She is in the process of moving apartments. There are 0 steps in the home. Physician: Dr. Jose Estrella Pharmacy: [facility] Home health services: none Patient's level of ADLs: INDEPENDENT Patient has working utilities: yes DME: none Follow-up physician's appointment after d/c: she prefers to make her own follow up appt after discharge Does patient want to access PORTAL?: no Discharge plan discussed with patient. She lives in an apartment alone with family and friends checking in on her. She is independent in her ADLs and ambulation. Discussed home health care services and she denies any home needs at this time. She is in the process of moving to an apartment on [address]. When medically stable she will be discharged to home. DUSTIN BALLARD
[2018-10-21 12:00] VITALS: BP 91/53
[2018-10-21 16:00] VITALS: BP 95/88
[2018-10-21 20:00] VITALS: BP 111/67
[2018-10-22] VITALS: BP 116/71
[2018-10-22 00:51] LABS: BILIRUBIN NEGATIVE (NEGATIVE); BLOOD NEGATIVE (NEGATIVE); CLARITY SL CLOUDY (CLEAR); COLOR YELLOW (YELLOW); GLUCOSE NEGATIVE (NEGATIVE); KETONE NEGATIVE (NEGATIVE); LEUKO ESTERASE 1+ (NEGATIVE); NITRITE NEGATIVE (NEGATIVE); SPECIFIC GRAVITY 1.025 (1.005-1.030)
[2018-10-22 01:02] LABS: URINE AMPHETAMINES < 1000 (1000ng/ml); URINE BARBITURATES < 200 (200ng/ml); URINE BENZODIAZEPINES > 200 (200ng/ml); URINE CANNABINOIDS (THC) > 50 (50ng/ml); URINE COCAINE > 300 (300ng/ml); URINE METHADONE < 300 (300ng/ml); URINE OPIATES < 300 (300ng/ml)
[2018-10-22 01:03] LABS: BACTERIA TRACE; EPITHELIAL CELLS 45-50
[2018-10-22 01:06] LABS: URINE PHENCYCLIDINE < 25 (25ng/ml)
[2018-10-22 08:00] VITALS: BP 98/56
--- NOTE | 2018-10-22 09:00 | NUR ---
Manager Law in to see patient. No new needs or request at this time. She denies any home needs. When medically stable she will be discharged to home.
[2018-10-22] MEDS ORDERED: NEURONTIN400 MG PO (10:22)
--- NOTE | 2018-10-22 11:22 | NUR ---
Discharge instructions reviewed with patient/family. Patient receptive and verbalizes understanding. Follow-up care arranged. Written instructions given to patient/family. RICO CHEN
== END 2018-10-22 11:22 | disposition home or self-care (01) | DRG 392 ==
LOC: ED 11:44 → EDHOLD 15:48 → 4E 15:48
PROVIDERS: Internal Medicine; ADMIT Internal Medicine
DX: A08.4 Viral intestinal infection, unspecified (principal); F33.9 Major depressive disorder, recurrent, unspecified; K21.0 Gastro-esophageal reflux disease with esophagitis; E86.0 Dehydration; G35 Multiple sclerosis; G25.81 Restless legs syndrome; F17.200 Nicotine dependence, unspecified, uncomplicated; G40.409 Other generalized epilepsy and epileptic syndromes, not intractable, without status epilepticus; F41.1 Generalized anxiety disorder; G89.4 Chronic pain syndrome; F19.90 Other psychoactive substance use, unspecified, uncomplicated; Z71.6 Tobacco abuse counseling; Z72.89 Other problems related to lifestyle; Z82.49 Family history of ischemic heart disease and other diseases of the circulatory system; Z98.51 Tubal ligation status

== ENCOUNTER 2018-12-13 11:33 | Emergency (ER) | payer OTHER ==
[~2018-12-13] VITALS: Ht 162.5 cm; Wt 63.5 kg
[2018-12-13 11:34] VITALS: BP 109/55
[2018-12-13 12:15] LABS: BILIRUBIN NEGATIVE (NEGATIVE); BLOOD NEGATIVE (NEGATIVE); CLARITY CLOUDY (CLEAR); COLOR YELLOW (YELLOW); GLUCOSE NEGATIVE (NEGATIVE); KETONE NEGATIVE (NEGATIVE); LEUKO ESTERASE 2+ (NEGATIVE); NITRITE POSITIVE (NEGATIVE); PH 5.5 (5.0-9.0); UROBILINOGEN 0.2 E.U./dl (0.2-1.0)
[2018-12-13] MEDS ORDERED: SEPTDS PO (12:21)
[2018-12-13] MEDS ORDERED: PYRIDIUM200 M1 PO (12:21)
[2018-12-13 12:27] LABS: BACTERIA 4+; WBC TNTC wbc/hpf (0-5)
== END 2018-12-13 12:48 ==
LOC: ED 11:33
PROVIDERS: Emergency Medicine
DX: N39.0 Urinary tract infection, site not specified (principal); F17.200 Nicotine dependence, unspecified, uncomplicated; Z79.899 Other long term (current) drug therapy

== ENCOUNTER 2019-04-12 23:09 | Emergency (ER) | payer OTHER ==
[~2019-04-12] VITALS: Ht 170.1 cm; Wt 77.1 kg
--- NOTE | ~2019-04-12 | EKG ---
[place], [place] ELECTROCARDIOGRAM REPORT NAME: PRAKASH ARROYO UNIT #: [id number] ROOM: DOCTOR: EPIPHANY DRAFT REPORT BIRTHDATE: [birth year] [facility] Test Date: 2019-04-13 Test Time: 01:02:34 Pat Name: PRAKASH ARROYO Department: Room: Gender: F Hand Laster: : 1975 Requested By: GABE BOB PA-C Order Number: [id number] Reading MD: Arlene Kraft MD Measurements Intervals [place] Rate: 72 P: 81 ME: 141 QRS: 63 QRSD: 98 T: 62 QT: 390 QTc: 427 Interpretive Statements Sinus rhythm Low voltage, precordial leads Consider anterior infarct Compared to ECG 10/20/2018 13:05:08 Low QRS voltage now present Myocardial infarct finding now present Electronically Signed On 04-13-2019 12:11:40 PDT by Arlene Kraft MD CM:EKGRPT:ELECTROCARDIOGRAM REPORT [id number] 1211 GABE BOB PA-C EPIPHJOSE DRAFT REPORT GABE BOB PA-C
[2019-04-13 00:49] LABS: BASO # 0.1 10*3/uL (0.0-0.1); BASO % 0.8 % (0.0-1.0); EOS # 0.2 10*3/uL (0.0-0.4); HEMATOCRIT 43.1 % (37.0-47.0); HEMOGLOBIN 13.8 g/dl (12.0-16.0); LYMPH # 3.6 10*3/uL (1.3-4.4); LYMPH % 34.4 % (27.0-41.0); MEAN CORPUSCULAR HGB 28.8 pg (27.0-31.0); MEAN PLATELET VOLUME 10.9 fl (9.6-12.3); MONO # 0.5 10*3/uL (0.1-1.0); MONO % 4.7 % (3.0-9.0); NEUT % 57.9 % (47.0-73.0); PLATELET COUNT AUTOMATED 282 10*3/uL (130-400); RED BLOOD COUNT 4.79 10*6/uL (4.10-5.10); RED CELL DISTRI WIDTH 14.6 % (0-14.5); WHITE BLOOD COUNT 10.3 10*3/uL (4.8-10.8)
[2019-04-13 00:59] LABS: INTERNATIONAL NORM RATIO 0.9 (2.0-3.5)
[2019-04-13 01:07] LABS: ALKALINE PHOSPHATASE 88 U/L (45-117); BUN 10 mg/dl (7-24); SGOT/AST 21 IU/L (3-35); SGPT/ALT 25 U/L (12-78); TOTAL PROTEIN 7.9 gm/dL (6.4-8.2)
[2019-04-13 01:19] VITALS: BP 130/82
[2019-04-13 01:19] LABS: TROPONIN I < 0.015 ng/ml (<0.045)
[2019-04-13 01:24] LABS: CHLORIDE 106 mmol/L (98-107); POTASSIUM 4.3 mmol/L (3.5-5.1); SODIUM 142 mmol/L (136-145)
== END 2019-04-13 01:47 | disposition home or self-care (01) ==
LOC: ED 23:09
PROVIDERS: Physician Assistant
DX: R07.89 Other chest pain (principal); M79.602 Pain in left arm; F41.9 Anxiety disorder, unspecified; F17.210 Nicotine dependence, cigarettes, uncomplicated

== ENCOUNTER 2019-09-16 22:35 | Emergency (ER) | payer OTHER ==
[~2019-09-16] VITALS: Ht 162.5 cm; Wt 65.8 kg
[2019-09-16 22:35] VITALS: BP 141/82
[2019-09-16 23:22] LABS: BASO # 0.1 10*3/uL (0.0-0.1); BASO % 0.7 % (0.0-1.0); EOS # 0.1 10*3/uL (0.0-0.4); EOS % 1.6 % (1.0-4.0); HEMATOCRIT 40.4 % (37.0-47.0); HEMOGLOBIN 13.1 g/dl (12.0-16.0); LYMPH % 26.5 % (27.0-41.0); MEAN CORPUSCULAR HGB 28.9 pg (27.0-31.0); MEAN CORPUSCULAR HGB CONC 32.4 g/dl (33.0-37.0); MEAN PLATELET VOLUME 10.2 fl (9.6-12.3); MONO # 0.5 10*3/uL (0.1-1.0); MONO % 6.8 % (3.0-9.0); NEUT # 4.8 10*3/uL (2.3-7.9); NEUT % 64.1 % (47.0-73.0); PLATELET COUNT AUTOMATED 236 10*3/uL (130-400); RED BLOOD COUNT 4.54 10*6/uL (4.10-5.10); WHITE BLOOD COUNT 7.5 10*3/uL (4.8-10.8)
[2019-09-16 23:35] LABS: BILIRUBIN NEGATIVE (NEGATIVE); BLOOD NEGATIVE (NEGATIVE); CLARITY CLEAR (CLEAR); COLOR YELLOW (YELLOW); GLUCOSE NEGATIVE (NEGATIVE); KETONE TRACE (NEGATIVE); LEUKO ESTERASE 1+ (NEGATIVE); NITRITE POSITIVE (NEGATIVE); UROBILINOGEN 0.2 E.U./dl (0.2-1.0)
[2019-09-16 23:36] LABS: ALBUMIN 3.8 gm/dl (3.1-4.5); ALKALINE PHOSPHATASE 93 U/L (45-117); BUN 6 mg/dl (7-24); CHLORIDE 108 mmol/L (98-107); CREATININE 0.77 mg/dL (0.55-1.02); LIPASE 33 U/L (73-393); POTASSIUM 3.9 mmol/L (3.5-5.1); SGOT/AST 47 IU/L (3-35); SGPT/ALT 36 U/L (12-78); SODIUM 140 mmol/L (136-145); TOTAL PROTEIN 7.7 gm/dL (6.4-8.2)
[2019-09-16 23:37] LABS: ACT PARTIAL THROMBO TIME 25.9 SECONDS (20.0-32.1)
[2019-09-16 23:44] LABS: URINE AMPHETAMINES < 1000 (1000ng/ml); URINE BARBITURATES < 200 (200ng/ml); URINE BENZODIAZEPINES > 200 (200ng/ml); URINE CANNABINOIDS (THC) > 50 (50ng/ml); URINE COCAINE > 300 (300ng/ml); URINE METHADONE < 300 (300ng/ml); URINE OPIATES > 300 (300ng/ml)
[2019-09-16 23:45] LABS: BACTERIA 2+; RBC 0-2 rbc/hpf (0-2)
[2019-09-16 23:48] LABS: URINE PHENCYCLIDINE < 25 (25ng/ml)
[2019-09-16 23:48] LABS: ACETAMINOPHEN (TYLENOL) < 5.0 ug/ml (10-30); ETHYL ALCOHOL < 3.0 mg/dl (<3); TROPONIN I < 0.015 ng/ml (<0.045)
[2019-09-17] MEDS ORDERED: ZOFRAN4 MG PO (01:47)
== END 2019-09-17 01:50 | disposition home or self-care (01) ==
LOC: ED 22:35
PROVIDERS: Emergency Medicine Emergency Medical Services
DX: S20.212A Contusion of left front wall of thorax, initial encounter (principal); F19.90 Other psychoactive substance use, unspecified, uncomplicated; F14.90 Cocaine use, unspecified, uncomplicated; F11.90 Opioid use, unspecified, uncomplicated; F17.210 Nicotine dependence, cigarettes, uncomplicated; Y08.89XA Assault by other specified means, initial encounter; Y93.89 Activity, other specified; Y92.89 Other specified places as the place of occurrence of the external cause; Y99.8 Other external cause status

== ENCOUNTER 2019-12-18 01:20 | Emergency (ER) | payer OTHER ==
[~2019-12-18 01:20] MED LIST changes: +ZOFRAN4 MG PO
[2019-12-18 01:29] VITALS: BP 134/80
[2019-12-18 01:55] LABS: BASO # 0.1 10*3/uL (0.0-0.1); BASO % 0.7 % (0.0-1.0); EOS # 0.2 10*3/uL (0.0-0.4); EOS % 1.9 % (1.0-4.0); HEMATOCRIT 42.3 % (37.0-47.0); HEMOGLOBIN 13.6 g/dl (12.0-16.0); LYMPH % 39.5 % (27.0-41.0); MEAN CELL VOLUME 87.2 fl (81.0-99.0); MEAN CORPUSCULAR HGB CONC 32.2 g/dl (33.0-37.0); MEAN PLATELET VOLUME 10.1 fl (9.6-12.3); MONO # 0.4 10*3/uL (0.1-1.0); MONO % 3.8 % (3.0-9.0); NEUT # 5.4 10*3/uL (2.3-7.9); NEUT % 53.8 % (47.0-73.0); PLATELET COUNT AUTOMATED 277 10*3/uL (130-400); RED BLOOD COUNT 4.85 10*6/uL (4.10-5.10); RED CELL DISTRI WIDTH 14.6 % (0-14.5)
[2019-12-18 02:09] LABS: BUN 4 mg/dl (7-24); CHLORIDE 110 mmol/L (98-107); SODIUM 144 mmol/L (136-145)
[2019-12-18 02:14] LABS: ACETAMINOPHEN (TYLENOL) < 5.0 ug/ml (10-30)
[2019-12-18] MEDS ORDERED: VISTARIL50 MG PO (07:36)
== END 2019-12-18 07:41 | disposition home or self-care (01) ==
LOC: ED 01:20
PROVIDERS: Emergency Medicine Emergency Medical Services
DX: F43.23 Adjustment disorder with mixed anxiety and depressed mood (principal); F10.920 Alcohol use, unspecified with intoxication, uncomplicated; F14.10 Cocaine abuse, uncomplicated; F11.10 Opioid abuse, uncomplicated; F17.210 Nicotine dependence, cigarettes, uncomplicated; Z79.899 Other long term (current) drug therapy; Y90.6 Blood alcohol level of 120-199 mg/100 ml

== ENCOUNTER 2020-01-20 00:19 | Inpatient (IN) | payer OTHER ==
[2020-01-20] VITALS (7 sets, daily range): BP systolic 89–130; BP diastolic 42–74
[~2020-01-20] VITALS: Ht 162.5 cm; Wt 63.7 kg
[~2020-01-20 00:19] MED LIST changes: +VISTARIL50 MG PO
[2020-01-20 01:40] LABS: BASO # 0.1 10*3/uL (0.0-0.1); BASO % 0.6 % (0.0-1.0); EOS # 0.1 10*3/uL (0.0-0.4); EOS % 0.9 % (1.0-4.0); HEMATOCRIT 37.4 % (37.0-47.0); HEMOGLOBIN 12.1 g/dl (12.0-16.0); LYMPH # 1.7 10*3/uL (1.3-4.4); LYMPH % 20.3 % (27.0-41.0); MEAN CELL VOLUME 86.6 fl (81.0-99.0); MEAN CORPUSCULAR HGB CONC 32.4 g/dl (33.0-37.0); MEAN PLATELET VOLUME 10.7 fl (9.6-12.3); MONO # 0.6 10*3/uL (0.1-1.0); MONO % 7.1 % (3.0-9.0); NEUT % 70.9 % (47.0-73.0); PLATELET COUNT AUTOMATED 248 10*3/uL (130-400); RED BLOOD COUNT 4.32 10*6/uL (4.10-5.10); RED CELL DISTRI WIDTH 14.3 % (0-14.5); WHITE BLOOD COUNT 8.5 10*3/uL (4.8-10.8)
[2020-01-20 01:55] LABS: ALBUMIN 3.2 gm/dl (3.1-4.5); ALKALINE PHOSPHATASE 75 U/L (45-117); BUN 8 mg/dl (7-24); CHLORIDE 103 mmol/L (98-107); CREATININE 0.73 mg/dL (0.55-1.02); POTASSIUM 3.2 mmol/L (3.5-5.1); SGOT/AST 14 IU/L (3-35); SGPT/ALT 17 U/L (12-78); SODIUM 133 mmol/L (136-145); TOTAL PROTEIN 6.7 gm/dL (6.4-8.2)
[2020-01-20] MEDS ORDERED: GABAPENTIN600 MG PO (03:17)
[2020-01-20] MEDS ORDERED: IBU800 M1 PO (03:18)
[2020-01-21] VITALS: BP 119/64
[2020-01-21 06:05] LABS: BASO # 0.1 10*3/uL (0.0-0.1); BASO % 0.6 % (0.0-1.0); EOS # 0.1 10*3/uL (0.0-0.4); EOS % 1.2 % (1.0-4.0); HEMATOCRIT 33.2 % (37.0-47.0); HEMOGLOBIN 10.6 g/dl (12.0-16.0); LYMPH # 1.8 10*3/uL (1.3-4.4); LYMPH % 22.3 % (27.0-41.0); MEAN CELL VOLUME 87.4 fl (81.0-99.0); MEAN CORPUSCULAR HGB 27.9 pg (27.0-31.0); MEAN CORPUSCULAR HGB CONC 31.9 g/dl (33.0-37.0); MEAN PLATELET VOLUME 11.1 fl (9.6-12.3); MONO # 0.7 10*3/uL (0.1-1.0); MONO % 8.2 % (3.0-9.0); NEUT # 5.5 10*3/uL (2.3-7.9); NEUT % 67.3 % (47.0-73.0); PLATELET COUNT AUTOMATED 220 10*3/uL (130-400); WHITE BLOOD COUNT 8.2 10*3/uL (4.8-10.8)
[2020-01-21 06:33] LABS: BUN 16 mg/dl (7-24); CHLORIDE 107 mmol/L (98-107); CREATININE 0.72 mg/dL (0.55-1.02); POTASSIUM 4.1 mmol/L (3.5-5.1); SODIUM 139 mmol/L (136-145)
[2020-01-21 08:00] VITALS: BP 122/68
[2020-01-21 12:00] VITALS: BP 118/97; BP 120/70
[2020-01-21 16:00] VITALS: BP 111/58
[2020-01-21 20:00] VITALS: BP 115/70
[2020-01-22] VITALS: BP 121/61
[2020-01-23] MEDS ORDERED: LEVETIRACETAM750 MG PO (00:08)
[2020-01-23] MEDS ORDERED: NEURONTIN600 MG PO (00:10)
[2020-01-23] MEDS ORDERED: OMEPRAZOLE MAGN20 MG PO (00:10)
[2020-01-23] MEDS ORDERED: Motrin,Rufen800 MG PO (00:12)
[2020-01-23] MEDS ORDERED: SUBOXONE 8 MG-1 EACH SL (00:14)
== END 2020-01-22 04:12 | disposition left against medical advice (07) | DRG 383 ==
LOC: ED 00:19 → EDHOLD 01:45 → 4E 02:01
PROVIDERS: Nurse Practitioner Family; ADMIT Internal Medicine
DX: L03.113 Cellulitis of right upper limb (principal); F41.1 Generalized anxiety disorder; G89.4 Chronic pain syndrome; E87.6 Hypokalemia; F32.9 Major depressive disorder, single episode, unspecified; G35 Multiple sclerosis; B19.20 Unspecified viral hepatitis C without hepatic coma; G40.409 Other generalized epilepsy and epileptic syndromes, not intractable, without status epilepticus; F17.210 Nicotine dependence, cigarettes, uncomplicated; L02.413 Cutaneous abscess of right upper limb; F19.10 Other psychoactive substance abuse, uncomplicated; Z53.29 Procedure and treatment not carried out because of patient's decision for other reasons; M47.816 Spondylosis without myelopathy or radiculopathy, lumbar region; Z87.440 Personal history of urinary (tract) infections; Z98.51 Tubal ligation status; Z82.49 Family history of ischemic heart disease and other diseases of the circulatory system; Z82.0 Family history of epilepsy and other diseases of the nervous system

== ENCOUNTER 2020-01-22 20:48 | Inpatient (IN) | payer OTHER ==
[~2020-01-22] VITALS: Ht 157.5 cm; Wt 65.4 kg
[~2020-01-22 20:48] MED LIST changes: +GABAPENTIN600 MG PO; +IBU800 M1 PO
[2020-01-22 20:52] VITALS: BP 124/76
[2020-01-22 21:48] LABS: BASO # 0.1 10*3/uL (0.0-0.1); BASO % 0.5 % (0.0-1.0); EOS # 0.2 10*3/uL (0.0-0.4); EOS % 1.7 % (1.0-4.0); HEMATOCRIT 38.8 % (37.0-47.0); HEMOGLOBIN 12.2 g/dl (12.0-16.0); LYMPH # 2.3 10*3/uL (1.3-4.4); LYMPH % 21.6 % (27.0-41.0); MEAN CORPUSCULAR HGB 27.7 pg (27.0-31.0); MEAN CORPUSCULAR HGB CONC 31.4 g/dl (33.0-37.0); MEAN PLATELET VOLUME 10.5 fl (9.6-12.3); MONO # 0.4 10*3/uL (0.1-1.0); MONO % 4.1 % (3.0-9.0); NEUT # 7.5 10*3/uL (2.3-7.9); NEUT % 71.8 % (47.0-73.0); RED BLOOD COUNT 4.41 10*6/uL (4.10-5.10); RED CELL DISTRI WIDTH 15.1 % (0-14.5); WHITE BLOOD COUNT 10.5 10*3/uL (4.8-10.8)
[2020-01-22 21:54] LABS: PLATELET COUNT AUTOMATED 322 10*3/uL (130-400)
[2020-01-22 21:59] LABS: ACT PARTIAL THROMBO TIME 27.3 SECONDS (20.0-32.1)
[2020-01-22 22:01] LABS: ALBUMIN 3.3 gm/dl (3.1-4.5); ALKALINE PHOSPHATASE 64 U/L (45-117); CHLORIDE 103 mmol/L (98-107); CREATININE 0.67 mg/dL (0.55-1.02); LIPASE 31 U/L (73-393); POTASSIUM 3.5 mmol/L (3.5-5.1); SGOT/AST 23 IU/L (3-35); SGPT/ALT 16 U/L (12-78); SODIUM 134 mmol/L (136-145); TOTAL PROTEIN 7.7 gm/dL (6.4-8.2)
[2020-01-22 22:05] LABS: BUN 6 mg/dl (7-24); TROPONIN I < 0.015 ng/ml (<0.045)
[2020-01-22 23:40] VITALS: BP 106/60
[2020-01-23] VITALS (9 sets, daily range): BP systolic 90–126; BP diastolic 49–73
[2020-01-23] MEDS ORDERED: LEVETIRACETAM750 MG PO (00:08)
[2020-01-23] MEDS ORDERED: OMEPRAZOLE MAGN20 MG PO (00:10)
[2020-01-23] MEDS ORDERED: NEURONTIN600 MG PO (00:10)
[2020-01-23] MEDS ORDERED: Motrin,Rufen800 MG PO (00:12)
[2020-01-23] MEDS ORDERED: SUBOXONE 8 MG-1 EACH SL (00:14)
[2020-01-24] VITALS: BP 107/67
[2020-01-24 08:00] VITALS: BP 137/75
[2020-01-24 16:00] VITALS: BP 104/56
[2020-01-25] VITALS: BP 111/60
[2020-01-25 06:07] LABS: BASO % 0.5 % (0.0-1.0); EOS # 0.3 10*3/uL (0.0-0.4); EOS % 3.2 % (1.0-4.0); HEMATOCRIT 31.7 % (37.0-47.0); HEMOGLOBIN 9.8 g/dl (12.0-16.0); LYMPH # 2.7 10*3/uL (1.3-4.4); MEAN CELL VOLUME 88.3 fl (81.0-99.0); MEAN CORPUSCULAR HGB 27.3 pg (27.0-31.0); MEAN CORPUSCULAR HGB CONC 30.9 g/dl (33.0-37.0); MEAN PLATELET VOLUME 10.3 fl (9.6-12.3); MONO # 0.4 10*3/uL (0.1-1.0); MONO % 5.2 % (3.0-9.0); NEUT # 4.3 10*3/uL (2.3-7.9); NEUT % 55.7 % (47.0-73.0); PLATELET COUNT AUTOMATED 253 10*3/uL (130-400); RED BLOOD COUNT 3.59 10*6/uL (4.10-5.10); RED CELL DISTRI WIDTH 15.1 % (0-14.5); WHITE BLOOD COUNT 7.7 10*3/uL (4.8-10.8)
[2020-01-25 06:32] LABS: BUN 11 mg/dl (7-24); CHLORIDE 110 mmol/L (98-107); CREATININE 0.71 mg/dL (0.55-1.02); POTASSIUM 4.3 mmol/L (3.5-5.1); SODIUM 141 mmol/L (136-145)
[2020-01-25 08:00] VITALS: BP 125/75
== END 2020-01-25 09:36 | disposition left against medical advice (07) | DRG 383 ==
LOC: ED 20:48 → EDHOLD 22:13 → 4E 22:13
PROVIDERS: Nurse Practitioner Family; ADMIT Internal Medicine
PROC: 0X9B0ZZ Drainage of Right Elbow Region, Open Approach (ICD-10-PCS; principal; 2020-01-23)
DX: L02.413 Cutaneous abscess of right upper limb (principal); L03.113 Cellulitis of right upper limb; F41.1 Generalized anxiety disorder; Z53.29 Procedure and treatment not carried out because of patient's decision for other reasons; B19.20 Unspecified viral hepatitis C without hepatic coma; F17.210 Nicotine dependence, cigarettes, uncomplicated; G40.409 Other generalized epilepsy and epileptic syndromes, not intractable, without status epilepticus; G25.81 Restless legs syndrome; M47.816 Spondylosis without myelopathy or radiculopathy, lumbar region; F32.9 Major depressive disorder, single episode, unspecified; G89.4 Chronic pain syndrome; F11.20 Opioid dependence, uncomplicated; K21.0 Gastro-esophageal reflux disease with esophagitis; Z71.6 Tobacco abuse counseling; Z82.49 Family history of ischemic heart disease and other diseases of the circulatory system; Z82.0 Family history of epilepsy and other diseases of the nervous system; Z98.51 Tubal ligation status; Z87.440 Personal history of urinary (tract) infections; Z79.899 Other long term (current) drug therapy

== ENCOUNTER 2020-06-06 23:06 | Emergency (ER) | payer OTHER ==
[~2020-06-06] VITALS: Ht 162.5 cm; Wt 58.1 kg
[~2020-06-06 23:06] MED LIST changes: +LEVETIRACETAM750 MG PO; +NEURONTIN600 MG PO; +OMEPRAZOLE MAGN20 MG PO
[2020-06-07 01:00] VITALS: BP 116/60
== END 2020-06-07 01:09 | disposition home or self-care (01) ==
LOC: ED 23:06
DX: M54.2 Cervicalgia (principal); R51 Headache; M79.10 Myalgia, unspecified site; Z79.899 Other long term (current) drug therapy; Z88.8 Allergy status to other drugs, medicaments and biological substances; Y08.89XA Assault by other specified means, initial encounter; Y93.89 Activity, other specified; Y92.89 Other specified places as the place of occurrence of the external cause; Y99.8 Other external cause status

== ENCOUNTER 2020-07-28 23:43 | Emergency (ER) | payer OTHER ==
[~2020-07-28] VITALS: Ht 162.5 cm; Wt 56.7 kg
[2020-07-29 00:19] LABS: BASO # 0.1 10*3/uL (0.0-0.1); BASO % 0.8 % (0.0-1.0); EOS # 0.1 10*3/uL (0.0-0.4); EOS % 1.4 % (1.0-4.0); HEMATOCRIT 38.1 % (37.0-47.0); LYMPH # 3.8 10*3/uL (1.3-4.4); LYMPH % 38.9 % (27.0-41.0); MEAN CELL VOLUME 85.2 fl (81.0-99.0); MEAN CORPUSCULAR HGB 26.4 pg (27.0-31.0); MEAN PLATELET VOLUME 10.1 fl (9.6-12.3); MONO # 0.5 10*3/uL (0.1-1.0); MONO % 5.2 % (3.0-9.0); NEUT # 5.2 10*3/uL (2.3-7.9); NEUT % 53.3 % (47.0-73.0); PLATELET COUNT AUTOMATED 292 10*3/uL (130-400); RED BLOOD COUNT 4.47 10*6/uL (4.10-5.10); RED CELL DISTRI WIDTH 15.3 % (0-14.5); WHITE BLOOD COUNT 9.8 10*3/uL (4.8-10.8)
[2020-07-29 00:30] LABS: ACT PARTIAL THROMBO TIME 27.5 SECONDS (20.0-32.1)
[2020-07-29 00:35] LABS: ALBUMIN 3.4 gm/dl (3.1-4.5); ALKALINE PHOSPHATASE 74 U/L (45-117); BUN 9 mg/dl (7-24); CHLORIDE 108 mmol/L (98-107); CREATININE 0.63 mg/dL (0.55-1.02); POTASSIUM 3.6 mmol/L (3.5-5.1); SGOT/AST 22 IU/L (3-35); SGPT/ALT 22 U/L (12-78); SODIUM 141 mmol/L (136-145); TOTAL PROTEIN 6.9 gm/dL (6.4-8.2)
[2020-07-29 00:38] LABS: TROPONIN I < 0.015 ng/ml (<0.045)
[2020-07-29 02:47] VITALS: BP 115/65
== END 2020-07-29 03:01 | disposition home or self-care (01) ==
LOC: ED 23:43
PROVIDERS: Physician Assistant
DX: R07.9 Chest pain, unspecified (principal); Z88.8 Allergy status to other drugs, medicaments and biological substances; Z79.899 Other long term (current) drug therapy

== ENCOUNTER → 2020-11-16 | Outpatient (CLI) | payer OTHER ==
[~2020-11-16] MED LIST changes: +CEPHALEXIN500 M1 PO
== END | disposition home or self-care (01) ==
LOC: COVID19 13:41
PROVIDERS: ATTEND Internal Medicine
DX: R05 Cough (principal); Z20.822 Contact with and (suspected) exposure to COVID-19

== ENCOUNTER 2020-12-25 15:21 | Emergency (ER) | payer OTHER ==
[~2020-12-25 15:21] MED LIST changes: -CEPHALEXIN500 M1 PO
[2020-12-25 15:23] VITALS: BP 118/91
[2020-12-25 16:33] LABS: BASO % 0.5 % (0.0-1.0); EOS # 0.1 10*3/uL (0.0-0.4); EOS % 1.1 % (1.0-4.0); HEMATOCRIT 36.5 % (37.0-47.0); LYMPH # 1.2 10*3/uL (1.3-4.4); LYMPH % 15.7 % (27.0-41.0); MEAN CELL VOLUME 89.2 fl (81.0-99.0); MEAN CORPUSCULAR HGB 27.6 pg (27.0-31.0); MEAN PLATELET VOLUME 9.9 fl (9.6-12.3); MONO # 0.4 10*3/uL (0.1-1.0); MONO % 5.3 % (3.0-9.0); NEUT # 5.8 10*3/uL (2.3-7.9); NEUT % 77.1 % (47.0-73.0); PLATELET COUNT AUTOMATED 223 10*3/uL (130-400); RED BLOOD COUNT 4.09 10*6/uL (4.10-5.10); WHITE BLOOD COUNT 7.5 10*3/uL (4.8-10.8)
[2020-12-25 16:51] LABS: ALBUMIN 3.3 gm/dl (3.1-4.5); ALKALINE PHOSPHATASE 64 U/L (45-117); BUN 12 mg/dl (7-24); CHLORIDE 107 mmol/L (98-107); CREATININE 0.68 mg/dL (0.55-1.02); POTASSIUM 4.9 mmol/L (3.5-5.1); SGOT/AST 17 IU/L (3-35); SGPT/ALT 20 U/L (12-78); SODIUM 141 mmol/L (136-145); TOTAL PROTEIN 6.7 gm/dL (6.4-8.2)
[2020-12-25 16:52] LABS: ACETAMINOPHEN (TYLENOL) < 5.0 ug/ml (10-30); ETHYL ALCOHOL < 3.0 mg/dl (<3); TROPONIN I < 0.015 ng/ml (<0.045)
[2020-12-25 17:00] LABS: BILIRUBIN Negative (Negative); BLOOD Negative (Negative); CLARITY Cloudy (Clear); COLOR Yellow (Yellow); GLUCOSE Negative (Negative); KETONE Negative (Negative); LEUKO ESTERASE Negative (Negative); NITRITE Positive (Negative)
[2020-12-25 17:07] LABS: URINE AMPHETAMINES > 1000 (1000ng/ml); URINE BARBITURATES < 200 (200ng/ml); URINE BENZODIAZEPINES < 200 (200ng/ml); URINE CANNABINOIDS (THC) < 50 (50ng/ml); URINE COCAINE < 300 (300ng/ml); URINE METHADONE < 300 (300ng/ml); URINE OPIATES < 300 (300ng/ml)
[2020-12-25 17:09] LABS: BACTERIA 2+; RBC 0-2 rbc/hpf (0-2); URINE PHENCYCLIDINE < 25 (25ng/ml)
[2020-12-25] MEDS ORDERED: CEPHALEXIN500 M1 PO (18:25)
== END 2020-12-25 20:14 | disposition home or self-care (01) ==
LOC: ED 15:21
PROVIDERS: Nurse Practitioner
DX: T65.91XA Toxic effect of unspecified substance, accidental (unintentional), initial encounter (principal); F19.10 Other psychoactive substance abuse, uncomplicated; N39.0 Urinary tract infection, site not specified; F41.9 Anxiety disorder, unspecified; F32.9 Major depressive disorder, single episode, unspecified; Z88.8 Allergy status to other drugs, medicaments and biological substances; Z79.899 Other long term (current) drug therapy; Z98.51 Tubal ligation status; Y92.89 Other specified places as the place of occurrence of the external cause

== ENCOUNTER 2021-05-30 11:18 | Emergency (ER) | payer OTHER ==
[~2021-05-30] VITALS: Wt 54.4 kg
[~2021-05-30 11:18] MED LIST changes: +CEPHALEXIN500 M1 PO
[2021-05-30 11:25] VITALS: BP 103/57
== END 2021-05-30 12:59 | disposition home or self-care (01) ==
LOC: ED 11:18
DX: F11.23 Opioid dependence with withdrawal (principal); R09.89 Other specified symptoms and signs involving the circulatory and respiratory systems; R68.83 Chills (without fever); F17.210 Nicotine dependence, cigarettes, uncomplicated; Z88.1 Allergy status to other antibiotic agents; Z79.2 Long term (current) use of antibiotics; Z79.899 Other long term (current) drug therapy; Z98.51 Tubal ligation status

== ENCOUNTER 2022-03-17 23:27 | Emergency (ER) | payer OTHER ==
[2022-03-17 23:35] VITALS: BP 112/62
== END 2022-03-18 01:49 | disposition home or self-care (01) ==
LOC: ED 23:27
DX: T40.1X1A Poisoning by heroin, accidental (unintentional), initial encounter (principal); Z87.891 Personal history of nicotine dependence; Z98.51 Tubal ligation status; Z98.890 Other specified postprocedural states; Z79.899 Other long term (current) drug therapy; Z88.1 Allergy status to other antibiotic agents; Y92.89 Other specified places as the place of occurrence of the external cause

== ENCOUNTER 2022-06-28 18:23 | Emergency (ER) | payer OTHER ==
[~2022-06-28] VITALS: Ht 162.5 cm; Wt 63.5 kg
[2022-06-28 18:27] VITALS: BP 128/80
== END 2022-06-28 18:55 | disposition left against medical advice (07) ==
LOC: ED 18:23
DX: T40.2X1A Poisoning by other opioids, accidental (unintentional), initial encounter (principal); G40.909 Epilepsy, unspecified, not intractable, without status epilepticus; F17.210 Nicotine dependence, cigarettes, uncomplicated; Z88.1 Allergy status to other antibiotic agents; Z79.2 Long term (current) use of antibiotics; Z98.51 Tubal ligation status; Z90.721 Acquired absence of ovaries, unilateral; Y92.89 Other specified places as the place of occurrence of the external cause

== ENCOUNTER 2022-07-09 09:13 | Inpatient (IN) | payer OTHER ==
[2022-07-09] VITALS (7 sets, daily range): BP systolic 106–142; BP diastolic 68–86
[~2022-07-09] VITALS: Ht 162.5 cm; Wt 67.7 kg
[2022-07-09 10:11] LABS: BASO # 0.1 10*3/uL (0.0-0.1); BASO % 1.3 % (0.0-1.0); EOS # 0.1 10*3/uL (0.0-0.4); EOS % 1.5 % (1.0-4.0); HEMATOCRIT 37.9 % (37.0-47.0); LYMPH # 1.7 10*3/uL (1.3-4.4); LYMPH % 30.7 % (27.0-41.0); MEAN CELL VOLUME 79.8 fl (81.0-99.0); MEAN CORPUSCULAR HGB 24.4 pg (27.0-31.0); MEAN CORPUSCULAR HGB CONC 30.6 g/dl (33.0-37.0); MONO # 0.5 10*3/uL (0.1-1.0); MONO % 8.9 % (3.0-9.0); NEUT # 3.2 10*3/uL (2.3-7.9); NEUT % 57.4 % (47.0-73.0); PLATELET COUNT AUTOMATED 285 10*3/uL (130-400); RED BLOOD COUNT 4.75 10*6/uL (4.10-5.10); RED CELL DISTRI WIDTH 18.6 % (0-14.5); WHITE BLOOD COUNT 5.5 10*3/uL (4.8-10.8)
[2022-07-09 10:24] LABS: ACT PARTIAL THROMBO TIME 28.7 SECONDS (20.0-32.1)
[2022-07-09 10:26] LABS: ALKALINE PHOSPHATASE 90 U/L (45-117); BUN 11 mg/dl (7-24); CHLORIDE 111 mmol/L (98-107); CREATININE 0.67 mg/dL (0.55-1.02); POTASSIUM 4.1 mmol/L (3.5-5.1); SGOT/AST 17 IU/L (3-35); SGPT/ALT 26 U/L (12-78); SODIUM 142 mmol/L (136-145); TOTAL PROTEIN 7.5 gm/dL (6.4-8.2)
[2022-07-09] MEDS ORDERED: INDOMETHACIN ER75 M1 PO (11:41)
[2022-07-09] MEDS ORDERED: AMITRIPTYLINE50 MG PO (11:41)
[2022-07-09 12:02] LABS: BILIRUBIN Negative (Negative); BLOOD Negative (Negative); CLARITY Cloudy (Clear); COLOR Yellow (Yellow); GLUCOSE Negative (Negative); KETONE Negative (Negative); LEUKO ESTERASE 1+ (Negative); NITRITE Negative (Negative)
[2022-07-09 12:09] LABS: URINE AMPHETAMINES > 1000 (1000ng/ml); URINE BARBITURATES < 200 (200ng/ml); URINE BENZODIAZEPINES < 200 (200ng/ml); URINE CANNABINOIDS (THC) < 50 (50ng/ml); URINE COCAINE > 300 (300ng/ml); URINE METHADONE < 300 (300ng/ml); URINE OPIATES < 300 (300ng/ml)
[2022-07-09 12:14] LABS: URINE PHENCYCLIDINE < 25 (25ng/ml)
[2022-07-09 12:32] LABS: BACTERIA 1+; EPITHELIAL CELLS TNTC
[2022-07-10] VITALS: BP 98/75
[2022-07-10 06:18] LABS: BASO # 0.1 10*3/uL (0.0-0.1); BASO % 1.2 % (0.0-1.0); EOS # 0.2 10*3/uL (0.0-0.4); EOS % 2.6 % (1.0-4.0); HEMATOCRIT 37.5 % (37.0-47.0); LYMPH % 48.8 % (27.0-41.0); MEAN CELL VOLUME 81.3 fl (81.0-99.0); MEAN CORPUSCULAR HGB 23.9 pg (27.0-31.0); MEAN CORPUSCULAR HGB CONC 29.3 g/dl (33.0-37.0); MEAN PLATELET VOLUME 10.6 fl (9.6-12.3); MONO # 0.6 10*3/uL (0.1-1.0); MONO % 9.4 % (3.0-9.0); NEUT # 2.3 10*3/uL (2.3-7.9); NEUT % 37.8 % (47.0-73.0); PLATELET COUNT AUTOMATED 241 10*3/uL (130-400); RED BLOOD COUNT 4.61 10*6/uL (4.10-5.10); RED CELL DISTRI WIDTH 19.1 % (0-14.5); WHITE BLOOD COUNT 6.1 10*3/uL (4.8-10.8)
[2022-07-10 06:41] LABS: BUN 15 mg/dl (7-24); CHLORIDE 109 mmol/L (98-107); CREATININE 0.69 mg/dL (0.55-1.02); POTASSIUM 4.4 mmol/L (3.5-5.1); SODIUM 140 mmol/L (136-145)
[2022-07-10 08:00] VITALS: BP 103/62
[2022-07-10 12:00] VITALS: BP 100/56
[2022-07-10 16:00] VITALS: BP 127/80
[2022-07-10 20:00] VITALS: BP 106/73
[2022-07-11] VITALS: BP 101/50
[2022-07-11 06:27] LABS: BASO # 0.1 10*3/uL (0.0-0.1); BASO % 1.2 % (0.0-1.0); EOS # 0.2 10*3/uL (0.0-0.4); EOS % 2.7 % (1.0-4.0); LYMPH # 2.4 10*3/uL (1.3-4.4); LYMPH % 42.8 % (27.0-41.0); MEAN CELL VOLUME 81.6 fl (81.0-99.0); MEAN CORPUSCULAR HGB 24.5 pg (27.0-31.0); MEAN PLATELET VOLUME 10.7 fl (9.6-12.3); MONO # 0.3 10*3/uL (0.1-1.0); NEUT # 2.7 10*3/uL (2.3-7.9); NEUT % 47.1 % (47.0-73.0); PLATELET COUNT AUTOMATED 246 10*3/uL (130-400); RED BLOOD COUNT 4.41 10*6/uL (4.10-5.10); RED CELL DISTRI WIDTH 18.4 % (0-14.5); WHITE BLOOD COUNT 5.6 10*3/uL (4.8-10.8)
[2022-07-11 08:00] VITALS: BP 95/51
[2022-07-11 12:00] VITALS: BP 130/58
[2022-07-11 16:00] VITALS: BP 113/61
[2022-07-11 20:00] VITALS: BP 106/62
[2022-07-12] VITALS: BP 105/52
[2022-07-12 08:00] VITALS: BP 112/81
[2022-07-12] MEDS ORDERED: ATARAX,VISTARIL50 MG PO (09:18)
[2022-07-12] MEDS ORDERED: DICYCLOMINE HYD20 MG PO (09:18)
[2022-07-12] MEDS ORDERED: THERA TABLET400 MCG PO (09:18)
[2022-07-12] MEDS ORDERED: ONDANSETRON HYDR4 M1 PO (09:18)
[2022-07-12] MEDS ORDERED: VITAMIN B-1100 M1 PO (09:18)
[2022-07-12] MEDS ORDERED: METHOCARBAMOL750 M1 PO (09:18)
== END 2022-07-12 10:15 | disposition home or self-care (01) | DRG 773 ==
LOC: ED 09:13 → 5E 10:56 → EDHOLD 10:56 → 5E 19:30
PROVIDERS: Emergency Medicine; Occupational Therapist; ADMIT Internal Medicine; ATTEND Internal Medicine
DX: F11.23 Opioid dependence with withdrawal (principal); E83.41 Hypermagnesemia; F15.10 Other stimulant abuse, uncomplicated; F41.9 Anxiety disorder, unspecified; F32.9 Major depressive disorder, single episode, unspecified; D50.9 Iron deficiency anemia, unspecified; E87.8 Other disorders of electrolyte and fluid balance, not elsewhere classified; E83.51 Hypocalcemia; F32.A Depression, unspecified; F19.90 Other psychoactive substance use, unspecified, uncomplicated; G35 Multiple sclerosis; Z88.1 Allergy status to other antibiotic agents; Z98.51 Tubal ligation status; Z82.49 Family history of ischemic heart disease and other diseases of the circulatory system; Z86.19 Personal history of other infectious and parasitic diseases

== ENCOUNTER 2022-09-10 13:20 | Emergency (ER) | payer OTHER ==
[~2022-09-10] VITALS: Ht 162.5 cm; Wt 65.3 kg
[~2022-09-10 13:20] MED LIST changes: +AMITRIPTYLINE50 MG PO; +DICYCLOMINE HYD20 MG PO; +INDOMETHACIN ER75 M1 PO; +ONDANSETRON HYDR4 M1 PO; +THERA TABLET400 MCG PO; +VITAMIN B-1100 M1 PO
[2022-09-10 13:45] VITALS: BP 107/58
[2022-09-10] MEDS ORDERED: ACETAMINOPHEN500 M4 PO (13:48)
[2022-09-10] MEDS ORDERED: BUPRENORPHINE-1 EAC1 SL (13:48)
[2022-09-10 14:40] LABS: BILIRUBIN Negative (Negative); BLOOD Negative (Negative); CLARITY Cloudy (Clear); COLOR Dark Yellow (Yellow); GLUCOSE Negative (Negative); KETONE Trace (Negative); LEUKO ESTERASE 1+ (Negative); NITRITE Positive (Negative); PH 5.5 (4.5-8.0); SPECIFIC GRAVITY >= 1.030 (1.001-1.030)
[2022-09-10 14:40] LABS: BASO % 0.5 % (0.0-1.0); EOS # 0.2 10*3/uL (0.0-0.4); HEMATOCRIT 39.2 % (37.0-47.0); LYMPH % 40.2 % (27.0-41.0); MEAN CELL VOLUME 82.4 fl (81.0-99.0); MEAN CORPUSCULAR HGB 25.4 pg (27.0-31.0); MEAN CORPUSCULAR HGB CONC 30.9 g/dl (33.0-37.0); MEAN PLATELET VOLUME 10.2 fl (9.6-12.3); MONO # 0.3 10*3/uL (0.1-1.0); MONO % 3.7 % (3.0-9.0); NEUT % 53.3 % (47.0-73.0); PLATELET COUNT AUTOMATED 286 10*3/uL (130-400); RED BLOOD COUNT 4.76 10*6/uL (4.10-5.10); RED CELL DISTRI WIDTH 17.4 % (0-14.5); WHITE BLOOD COUNT 7.6 10*3/uL (4.8-10.8)
[2022-09-10 14:53] LABS: ACT PARTIAL THROMBO TIME 27.1 SECONDS (20.0-32.1)
[2022-09-10 14:58] LABS: BACTERIA 4+
[2022-09-10 14:59] LABS: ALKALINE PHOSPHATASE 77 U/L (45-117); BUN 14 mg/dl (7-24); CHLORIDE 106 mmol/L (98-107); CREATININE 0.77 mg/dL (0.55-1.02); LIPASE 52 U/L (73-393); POTASSIUM 3.5 mmol/L (3.5-5.1); SGPT/ALT 20 U/L (12-78); SODIUM 138 mmol/L (136-145); TOTAL PROTEIN 7.4 gm/dL (6.4-8.2)
[2022-09-10 15:04] LABS: BETA-HCG, QUANT < 1.0 mIU/mL (1-3)
[2022-09-10] MEDS ORDERED: CIPRO500 MG PO (16:56)
== END 2022-09-10 17:07 | disposition home or self-care (01) ==
LOC: ED 13:20
PROVIDERS: Emergency Medicine
DX: R07.9 Chest pain, unspecified (principal); N39.0 Urinary tract infection, site not specified; Z88.1 Allergy status to other antibiotic agents; Z98.51 Tubal ligation status; F17.200 Nicotine dependence, unspecified, uncomplicated

== ENCOUNTER 2022-09-21 17:28 | Emergency (ER) | payer OTHER ==
[~2022-09-21] VITALS: Ht 162.5 cm; Wt 65.8 kg
[~2022-09-21 17:28] MED LIST changes: +ACETAMINOPHEN500 M4 PO; +BUPRENORPHINE-1 EAC1 SL; +CIPRO500 MG PO
[2022-09-21 19:09] LABS: BASO # 0.1 10*3/uL (0.0-0.1); BASO % 0.5 % (0.0-1.0); EOS # 0.2 10*3/uL (0.0-0.4); EOS % 1.6 % (1.0-4.0); HEMATOCRIT 41.5 % (37.0-47.0); LYMPH # 2.1 10*3/uL (1.3-4.4); LYMPH % 14.1 % (27.0-41.0); MEAN CELL VOLUME 86.3 fl (81.0-99.0); MEAN CORPUSCULAR HGB 26.6 pg (27.0-31.0); MEAN CORPUSCULAR HGB CONC 30.8 g/dl (33.0-37.0); MEAN PLATELET VOLUME 10.5 fl (9.6-12.3); MONO # 0.4 10*3/uL (0.1-1.0); MONO % 2.9 % (3.0-9.0); NEUT % 80.6 % (47.0-73.0); PLATELET COUNT AUTOMATED 194 10*3/uL (130-400); RED BLOOD COUNT 4.81 10*6/uL (4.10-5.10); RED CELL DISTRI WIDTH 16.8 % (0-14.5); WHITE BLOOD COUNT 14.9 10*3/uL (4.8-10.8)
[2022-09-21 19:29] LABS: ALKALINE PHOSPHATASE 70 U/L (46-116); BUN 10 mg/dl (9-23); CHLORIDE 105 mmol/L (98-107); CREATININE 0.74 mg/dL (0.55-1.02); LIPASE 21 U/L (12-53); POTASSIUM 3.2 mmol/L (3.4-5.1); SGPT/ALT 15 U/L (10-49); SODIUM 136 mmol/L (136-145)
[2022-09-21 19:42] LABS: ACT PARTIAL THROMBO TIME 29.1 SECONDS (20.0-32.1); INTERNATIONAL NORM RATIO 1.1 (2.0-3.5)
[2022-09-21 20:00] LABS: BILIRUBIN Negative (Negative); BLOOD Negative (Negative); CLARITY Clear (Clear); COLOR Yellow (Yellow); GLUCOSE Negative (Negative); KETONE Trace (Negative); LEUKO ESTERASE Trace (Negative); NITRITE Negative (Negative); PH 5.5 (4.5-8.0); SPECIFIC GRAVITY 1.025 (1.001-1.030)
[2022-09-21 20:07] LABS: URINE AMPHETAMINES Positive (1000ng/ml); URINE BARBITURATES Negative (200ng/ml); URINE BENZODIAZEPINES Positive (200ng/ml); URINE CANNABINOIDS (THC) Negative (50ng/ml); URINE COCAINE Negative (300ng/ml); URINE METHADONE Negative (300ng/ml); URINE OPIATES Positive (300ng/ml); URINE PHENCYCLIDINE Negative (25ng/ml)
[2022-09-21 20:36] LABS: BACTERIA 2+; EPITHELIAL CELLS 41-50; YEAST 4+
[2022-09-21 20:43] VITALS: BP 108/55
[2022-09-21] MEDS ORDERED: DIFLUCAN150 MG PO (21:39)
== END 2022-09-21 21:44 | disposition home or self-care (01) ==
LOC: ED 17:28
PROVIDERS: Family Medicine
DX: B37.31 Acute candidiasis of vulva and vagina (principal); Z20.822 Contact with and (suspected) exposure to COVID-19; R82.5 Elevated urine levels of drugs, medicaments and biological substances; F14.10 Cocaine abuse, uncomplicated; Z88.1 Allergy status to other antibiotic agents

== ENCOUNTER 2022-09-27 03:13 | Emergency (ER) | payer OTHER ==
[2022-09-27 08:30] VITALS: BP 90/46
== END 2022-09-27 11:40 | disposition home or self-care (01) ==
LOC: ED 03:13
DX: F15.90 Other stimulant use, unspecified, uncomplicated (principal); Z88.1 Allergy status to other antibiotic agents; Z98.51 Tubal ligation status; F17.200 Nicotine dependence, unspecified, uncomplicated

== ENCOUNTER 2022-10-18 19:02 | Emergency (ER) | payer OTHER ==
[~2022-10-18] VITALS: Ht 162.5 cm; Wt 63.5 kg
[2022-10-18 19:10] VITALS: BP 144/76
== END 2022-10-19 06:00 | disposition home or self-care (01) ==
LOC: ED 19:02
DX: F41.9 Anxiety disorder, unspecified (principal); Z88.1 Allergy status to other antibiotic agents; Z98.51 Tubal ligation status; F17.200 Nicotine dependence, unspecified, uncomplicated; Y08.89XA Assault by other specified means, initial encounter; Y93.89 Activity, other specified; Y92.89 Other specified places as the place of occurrence of the external cause; Y99.8 Other external cause status

== ENCOUNTER 2023-03-17 23:12 | Emergency (ER) | payer OTHER ==
[~2023-03-17] VITALS: Ht 162.5 cm; Wt 68.0 kg
[2023-03-17 23:23] VITALS: BP 112/62
[2023-03-18] MEDS ORDERED: NAPROXEN250 MG PO (00:39)
[2023-03-18] MEDS ORDERED: METHOCARBAMOL500 M1 PO (00:39)
== END 2023-03-18 01:13 | disposition home or self-care (01) ==
LOC: ED 23:12
DX: S80.01XA Contusion of right knee, initial encounter (principal); M54.50 Low back pain, unspecified; F41.9 Anxiety disorder, unspecified; F32.A Depression, unspecified; Z88.1 Allergy status to other antibiotic agents; Z98.51 Tubal ligation status; Z98.890 Other specified postprocedural states; F14.10 Cocaine abuse, uncomplicated; F19.10 Other psychoactive substance abuse, uncomplicated; Z72.0 Tobacco use; W19.XXXA Unspecified fall, initial encounter; Y93.89 Activity, other specified; Y92.89 Other specified places as the place of occurrence of the external cause; Y99.8 Other external cause status

== ENCOUNTER 2023-05-15 09:25 | Inpatient (IN) | payer OTHER ==
[~2023-05-15] VITALS: Ht 162.5 cm; Wt 67.6 kg
[~2023-05-15 09:25] MED LIST changes: +METHOCARBAMOL500 M1 PO; +NAPROXEN250 MG PO
[2023-05-15 09:45] VITALS: BP 109/70
[2023-05-15 12:00] VITALS: BP 113/64
[2023-05-15 12:00] LABS: BASO # 0.1 10*3/uL (0.0-0.1); BASO % 0.9 % (0.0-1.0); EOS # 0.1 10*3/uL (0.0-0.4); EOS % 1.2 % (1.0-4.0); HEMATOCRIT 35.3 % (37.0-47.0); LYMPH # 1.9 10*3/uL (1.3-4.4); LYMPH % 27.9 % (27.0-41.0); MEAN CELL VOLUME 81.7 fl (81.0-99.0); MEAN CORPUSCULAR HGB CONC 30.6 g/dl (33.0-37.0); MEAN PLATELET VOLUME 10.7 fl (9.6-12.3); MONO # 0.5 10*3/uL (0.1-1.0); MONO % 6.9 % (3.0-9.0); NEUT # 4.3 10*3/uL (2.3-7.9); NEUT % 62.8 % (47.0-73.0); PLATELET COUNT AUTOMATED 409 10*3/uL (130-400); RED BLOOD COUNT 4.32 10*6/uL (4.10-5.10); RED CELL DISTRI WIDTH 16.5 % (0-14.5); WHITE BLOOD COUNT 6.8 10*3/uL (4.8-10.8)
[2023-05-15 12:21] LABS: URINE AMPHETAMINES Negative (1000ng/ml); URINE BARBITURATES Negative (200ng/ml); URINE BENZODIAZEPINES Negative (200ng/ml); URINE CANNABINOIDS (THC) Negative (50ng/ml); URINE COCAINE Negative (300ng/ml); URINE METHADONE Negative (300ng/ml); URINE OPIATES Positive (300ng/ml); URINE PHENCYCLIDINE Negative (25ng/ml)
[2023-05-15 12:23] LABS: BILIRUBIN Negative (Negative); BLOOD Trace-Lysed (Negative); CLARITY Turbid (Clear); COLOR Dark Yellow (Yellow); GLUCOSE Negative (Negative); KETONE Negative (Negative); LEUKO ESTERASE 3+ (Negative); NITRITE Positive (Negative); PH 6.5 (4.5-8.0)
[2023-05-15 12:25] LABS: ALKALINE PHOSPHATASE 87 U/L (46-116); BUN 7 mg/dl (9-23); CHLORIDE 103 mmol/L (98-107); POTASSIUM 4.2 mmol/L (3.4-5.1); SGPT/ALT 12 U/L (10-49); TOTAL PROTEIN 6.9 gm/dL (6.0-8.0)
[2023-05-15 12:27] LABS: BETA-HCG, QUANT < 3.0 mIU/mL (3-10); ETHYL ALCOHOL < 3.0 mg/dl (<3)
[2023-05-15 12:36] LABS: BACTERIA 3+; WBC TNTC wbc/hpf (0-5)
[2023-05-15 16:00] VITALS: BP 103/52
[2023-05-15 20:00] VITALS: BP 109/58
[2023-05-16] VITALS: BP 107/61
[2023-05-16 05:34] LABS: BUN 8 mg/dl (9-23); CHLORIDE 105 mmol/L (98-107)
[2023-05-16 06:18] LABS: BASO # 0.1 10*3/uL (0.0-0.1); BASO % 1.4 % (0.0-1.0); EOS # 0.1 10*3/uL (0.0-0.4); HEMATOCRIT 36.4 % (37.0-47.0); LYMPH # 2.8 10*3/uL (1.3-4.4); LYMPH % 39.5 % (27.0-41.0); MEAN CELL VOLUME 81.3 fl (81.0-99.0); MEAN CORPUSCULAR HGB 24.8 pg (27.0-31.0); MEAN CORPUSCULAR HGB CONC 30.5 g/dl (33.0-37.0); MEAN PLATELET VOLUME 10.5 fl (9.6-12.3); MONO # 0.5 10*3/uL (0.1-1.0); NEUT # 3.6 10*3/uL (2.3-7.9); NEUT % 49.8 % (47.0-73.0); PLATELET COUNT AUTOMATED 455 10*3/uL (130-400); RED BLOOD COUNT 4.48 10*6/uL (4.10-5.10); RED CELL DISTRI WIDTH 16.3 % (0-14.5); WHITE BLOOD COUNT 7.1 10*3/uL (4.8-10.8)
[2023-05-16 08:00] VITALS: BP 112/60
[2023-05-16 16:37] VITALS: BP 132/68
[2023-05-16 20:00] VITALS: BP 130/82
[2023-05-17] VITALS: BP 125/89
[2023-05-17 05:40] LABS: ALKALINE PHOSPHATASE 92 U/L (46-116); BUN 9 mg/dl (9-23); CHLORIDE 102 mmol/L (98-107); POTASSIUM 3.6 mmol/L (3.4-5.1); SGPT/ALT 10 U/L (10-49); TOTAL PROTEIN 7.4 gm/dL (6.0-8.0)
[2023-05-17 06:03] LABS: BASO # 0.1 10*3/uL (0.0-0.1); BASO % 1.4 % (0.0-1.0); EOS # 0.1 10*3/uL (0.0-0.4); EOS % 1.1 % (1.0-4.0); HEMATOCRIT 37.6 % (37.0-47.0); LYMPH # 2.7 10*3/uL (1.3-4.4); LYMPH % 37.4 % (27.0-41.0); MEAN CELL VOLUME 81.6 fl (81.0-99.0); MEAN CORPUSCULAR HGB 24.9 pg (27.0-31.0); MEAN CORPUSCULAR HGB CONC 30.6 g/dl (33.0-37.0); MEAN PLATELET VOLUME 10.3 fl (9.6-12.3); MONO # 0.5 10*3/uL (0.1-1.0); MONO % 6.4 % (3.0-9.0); NEUT # 3.8 10*3/uL (2.3-7.9); NEUT % 53.3 % (47.0-73.0); PLATELET COUNT AUTOMATED 478 10*3/uL (130-400); RED BLOOD COUNT 4.61 10*6/uL (4.10-5.10); RED CELL DISTRI WIDTH 16.2 % (0-14.5); WHITE BLOOD COUNT 7.1 10*3/uL (4.8-10.8)
[2023-05-17 08:00] VITALS: BP 137/81
[2023-05-17 12:00] VITALS: BP 140/80
[2023-05-17 16:00] VITALS: BP 119/68
[2023-05-17 20:00] VITALS: BP 136/82
[2023-05-18] VITALS: BP 112/68
[2023-05-18 08:00] VITALS: BP 123/69
== END 2023-05-18 14:21 | disposition left against medical advice (07) | DRG 770 ==
LOC: 5E 09:25
PROVIDERS: Internal Medicine; Student in an Organized Health Care Education/Training Program; ADMIT Student in an Organized Health Care Education/Training Program; ATTEND Student in an Organized Health Care Education/Training Program
PROC: 4A02XM4 Measurement of Cardiac Total Activity, External Approach (ICD-10-PCS; principal; 2023-05-18)
PROC: 3E073KZ Introduction of Other Diagnostic Substance into Coronary Artery, Percutaneous Approach (ICD-10-PCS; 2023-05-18)
DX: F11.13 Opioid abuse with withdrawal (principal); G35 Multiple sclerosis; F41.9 Anxiety disorder, unspecified; B19.20 Unspecified viral hepatitis C without hepatic coma; G40.909 Epilepsy, unspecified, not intractable, without status epilepticus; D64.9 Anemia, unspecified; G89.29 Other chronic pain; R22.1 Localized swelling, mass and lump, neck; Z53.29 Procedure and treatment not carried out because of patient's decision for other reasons; R07.9 Chest pain, unspecified; N39.0 Urinary tract infection, site not specified; F19.90 Other psychoactive substance use, unspecified, uncomplicated; E04.1 Nontoxic single thyroid nodule; R73.9 Hyperglycemia, unspecified; D75.839 Thrombocytosis, unspecified; F17.210 Nicotine dependence, cigarettes, uncomplicated; M47.816 Spondylosis without myelopathy or radiculopathy, lumbar region; Z98.51 Tubal ligation status; Z79.899 Other long term (current) drug therapy; Z82.49 Family history of ischemic heart disease and other diseases of the circulatory system; Z81.8 Family history of other mental and behavioral disorders; Z88.1 Allergy status to other antibiotic agents

== ENCOUNTER → 2023-08-18 | Outpatient (CLI) | payer OTHER | END | disposition home or self-care (01) | LOC: MAMMO 07-22 07:30 | PROVIDERS: ATTEND Internal Medicine | DX: Z12.31 Encounter for screening mammogram for malignant neoplasm of breast (principal) ==

== ENCOUNTER 2023-12-04 19:47 | Emergency (ER) | payer OTHER ==
[~2023-12-04] VITALS: Wt 65.8 kg
[2023-12-04 20:11] VITALS: BP 104/56
[2023-12-04 20:53] LABS: BASO # 0.1 10*3/uL (0.0-0.1); BASO % 0.7 % (0.0-1.0); EOS # 0.2 10*3/uL (0.0-0.4); EOS % 1.6 % (1.0-4.0); HEMATOCRIT 42.3 % (37.0-47.0); LYMPH # 3.9 10*3/uL (1.3-4.4); LYMPH % 32.3 % (27.0-41.0); MEAN CELL VOLUME 85.1 fl (81.0-99.0); MEAN CORPUSCULAR HGB 25.6 pg (27.0-31.0); MEAN PLATELET VOLUME 10.1 fl (9.6-12.3); MONO # 0.7 10*3/uL (0.1-1.0); MONO % 5.6 % (3.0-9.0); NEUT # 7.2 10*3/uL (2.3-7.9); NEUT % 59.5 % (47.0-73.0); PLATELET COUNT AUTOMATED 340 10*3/uL (130-400); RED BLOOD COUNT 4.97 10*6/uL (4.10-5.10); RED CELL DISTRI WIDTH 15.5 % (0-14.5); WHITE BLOOD COUNT 12.2 10*3/uL (4.8-10.8)
[2023-12-04 21:13] LABS: BUN 6 mg/dl (9-23); CHLORIDE 103 mmol/L (98-107)
[2023-12-04] MEDS ORDERED: VIBRAMYCIN100 MG PO (21:56)
== END 2023-12-04 22:12 | disposition home or self-care (01) ==
LOC: ED 19:47
PROVIDERS: Nurse Practitioner
DX: L02.511 Cutaneous abscess of right hand (principal); R07.89 Other chest pain; F41.9 Anxiety disorder, unspecified; F32.A Depression, unspecified; Z88.8 Allergy status to other drugs, medicaments and biological substances; Z98.51 Tubal ligation status; Z98.890 Other specified postprocedural states; F14.90 Cocaine use, unspecified, uncomplicated; Z72.0 Tobacco use; F19.90 Other psychoactive substance use, unspecified, uncomplicated

== ENCOUNTER 2024-05-24 12:05 | Emergency (ER) | payer OTHER ==
[~2024-05-24] VITALS: Ht 162.5 cm; Wt 60.8 kg
[~2024-05-24 12:05] MED LIST changes: +VIBRAMYCIN100 MG PO
[2024-05-24 13:22] VITALS: BP 105/60
[2024-05-24 14:19] LABS: BASO % 0.4 % (0.0-1.0); EOS # 0.1 10*3/uL (0.0-0.4); EOS % 2.6 % (1.0-4.0); HEMATOCRIT 35.9 % (37.0-47.0); LYMPH # 1.5 10*3/uL (1.3-4.4); LYMPH % 31.3 % (27.0-41.0); MEAN CELL VOLUME 84.9 fl (81.0-99.0); MEAN CORPUSCULAR HGB CONC 31.8 g/dl (33.0-37.0); MEAN PLATELET VOLUME 9.7 fl (9.6-12.3); MONO # 0.4 10*3/uL (0.1-1.0); MONO % 8.4 % (3.0-9.0); NEUT # 2.7 10*3/uL (2.3-7.9); NEUT % 56.9 % (47.0-73.0); PLATELET COUNT AUTOMATED 200 10*3/uL (130-400); RED BLOOD COUNT 4.23 10*6/uL (4.10-5.10); RED CELL DISTRI WIDTH 14.6 % (0-14.5); WHITE BLOOD COUNT 4.7 10*3/uL (4.8-10.8)
[2024-05-24 14:30] LABS: ACT PARTIAL THROMBO TIME 27.6 SECONDS (20.0-32.1)
[2024-05-24 15:29] LABS: ALKALINE PHOSPHATASE 77 U/L (46-116); BUN 12 mg/dl (9-23); CHLORIDE 107 mmol/L (98-107); CPK 27 U/L (34-171); LIPASE 21 U/L (12-53); SGPT/ALT 9 U/L (5-49); TOTAL PROTEIN 6.5 gm/dL (6.0-8.0)
[2024-05-24 15:33] LABS: ETHYL ALCOHOL < 3.0 mg/dl (<3)
[2024-05-24 16:19] LABS: BILIRUBIN Negative (Negative); BLOOD Negative (Negative); CLARITY Cloudy (Clear); COLOR Yellow (Yellow); GLUCOSE Negative (Negative); KETONE Trace (Negative); LEUKO ESTERASE Trace (Negative); NITRITE Positive (Negative); PH 6.5 (4.5-8.0); SPECIFIC GRAVITY 1.025 (1.001-1.030)
[2024-05-24 16:26] LABS: URINE AMPHETAMINES Positive (1000ng/ml); URINE BARBITURATES Negative (200ng/ml); URINE BENZODIAZEPINES Positive (200ng/ml); URINE CANNABINOIDS (THC) Positive (50ng/ml); URINE COCAINE Negative (300ng/ml); URINE METHADONE Negative (300ng/ml); URINE OPIATES Negative (300ng/ml); URINE PHENCYCLIDINE Negative (25ng/ml)
[2024-05-24 16:28] LABS: BACTERIA 3+; RBC 0-2 rbc/hpf (0-2)
[2024-05-24] MEDS ORDERED: CIPRO500 MG PO (16:36)
== END 2024-05-24 16:41 | disposition home or self-care (01) ==
LOC: ED 12:05
PROVIDERS: Internal Medicine
DX: N39.0 Urinary tract infection, site not specified (principal); F11.13 Opioid abuse with withdrawal; R11.0 Nausea; R25.1 Tremor, unspecified; R25.2 Cramp and spasm; F15.90 Other stimulant use, unspecified, uncomplicated; F14.90 Cocaine use, unspecified, uncomplicated; F17.210 Nicotine dependence, cigarettes, uncomplicated; Z88.1 Allergy status to other antibiotic agents; Z98.51 Tubal ligation status; Z53.29 Procedure and treatment not carried out because of patient's decision for other reasons

== ENCOUNTER 2024-05-30 00:35 | Emergency (ER) | payer OTHER ==
[2024-05-30 00:48] VITALS: BP 138/86
[2024-05-30] MEDS ORDERED: Ondansetron Hydrochloride 4 MG TAB SL ONE (02:25)
[2024-05-30 02:30] LABS: BILIRUBIN Negative (Negative); BLOOD Negative (Negative); CLARITY Cloudy (Clear); COLOR Yellow (Yellow); GLUCOSE Negative (Negative); KETONE Trace (Negative); LEUKO ESTERASE Trace (Negative); NITRITE Positive (Negative); SPECIFIC GRAVITY 1.025 (1.001-1.030)
[2024-05-30 02:42] LABS: BACTERIA 2+; MUCOUS 1+; RBC 0-2 rbc/hpf (0-2)
[2024-05-30] MEDS ORDERED: Ciprofloxacin Hydrochloride 500 MG TAB PO ONE (02:45)
[2024-05-30] MEDS ORDERED: Nitrofurantoin, Macrocrystal 100 MG 2 CAP ED PACK PO SCH (02:50)
== END 2024-05-30 02:58 | disposition home or self-care (01) ==
LOC: ED 00:35
PROVIDERS: Internal Medicine
DX: N39.0 Urinary tract infection, site not specified (principal); F41.9 Anxiety disorder, unspecified; F32.A Depression, unspecified; F14.90 Cocaine use, unspecified, uncomplicated; F15.90 Other stimulant use, unspecified, uncomplicated; Z72.0 Tobacco use; Z88.1 Allergy status to other antibiotic agents; Z98.51 Tubal ligation status; Z98.890 Other specified postprocedural states

== ENCOUNTER 2025-07-14 18:36 | Emergency (ER) | payer OTHER ==
[~2025-07-14] VITALS: Wt 59.0 kg
[~2025-07-14 18:36] MED LIST changes: +TRAZODONE50 MG PO; +Vibra-Tab100 MG PO
[2025-07-14 18:47] VITALS: BP 139/78
[2025-07-14] MEDS ORDERED: Bacitracin Zinc 14 GM TUBE T ONE (19:15)
[2025-07-14] MEDS ORDERED: IBUPROFEN 600 MG TAB PO ONE (19:20)
[2025-07-14] MEDS ORDERED: Acetaminophen/Oxycodone 5 MG/325 MG TABLET PO ONE (19:20)
== END 2025-07-14 19:40 | disposition home or self-care (01) ==
LOC: ED 18:36
DX: T23.242A Burn of second degree of multiple left fingers (nail), including thumb, initial encounter (principal); F17.200 Nicotine dependence, unspecified, uncomplicated; Z88.1 Allergy status to other antibiotic agents; Z79.899 Other long term (current) drug therapy; Z90.721 Acquired absence of ovaries, unilateral; X16.XXXA Contact with hot heating appliances, radiators and pipes, initial encounter; Y93.89 Activity, other specified; Y92.89 Other specified places as the place of occurrence of the external cause; Y99.8 Other external cause status

== ENCOUNTER 2025-07-24 12:38 | Emergency (ER) | payer OTHER ==
[~2025-07-24] VITALS: Ht 162.5 cm; Wt 61.2 kg
[2025-07-24 12:48] VITALS: BP 120/76
[2025-07-24] MEDS ORDERED: CLINDAMYCIN HC300 MG PO (13:22)
[2025-07-24] MEDS ORDERED: CLINDAMYCIN HCL 300 MG CAPSULE PO ONE (13:25)
== END 2025-07-24 13:28 | disposition home or self-care (01) ==
LOC: ED 12:38
DX: H60.391 Other infective otitis externa, right ear (principal); F32.A Depression, unspecified; F41.9 Anxiety disorder, unspecified; F17.210 Nicotine dependence, cigarettes, uncomplicated; F11.90 Opioid use, unspecified, uncomplicated; F14.90 Cocaine use, unspecified, uncomplicated; Z88.5 Allergy status to narcotic agent; Z98.51 Tubal ligation status; Z86.19 Personal history of other infectious and parasitic diseases